=== PATIENT | male | born 1955 | race Caucasian/White ===

== ENCOUNTER 2023-01-09 21:26 | Inpatient (IN) | payer BC, MEDICARE ==
[2023-01-09] MEDS ORDERED: HEPARIN SODIUM 1,000 UN/ML (10ML VL) IV PRN (21:41)
[2023-01-09] MEDS ORDERED: HEPARIN SOD,PORK IN 0.45% NACL 25,000 UNIT in 0.45% NACL 1 250ML.BAG IV SCH (21:45)
[2023-01-09] MEDS ORDERED: NALOXONE 0.4 MG/ML 1 ML VIAL IV PRN (22:05)
--- NOTE | 2023-01-09 22:05 | ED ---
General Adult HPI - General Stated complaint: Chest Pain - History of Present Illness Initial comments: This is a 67-year-old male with a past medical history including diabetes, hypertension, atrial fibrillation and chronic diabetic foot wound on IV antibiotics via PICC line presents emergency department as a transfer patient for [facility]. The patient initially presented to the outside hospital for chest pain that began 1 hour prior to arrival. The patient described this chest pain as pressure-like sensation and he has never had pain like this before. The patient was found to have an NSTEMI as well as a hypertensive emergency and was started on IV heparin and nitroglycerin. Due to these findings in the patient having follow-up with cardiology here in [place], the patient was transferred for admission, high level of care and continuity of care. The patient on arrival stated that his chest pain was greatly improved and he was resting in bed comfortably currently on heparin and nitroglycerin drips. The patient denied any shortness of breath, lightheadedness or headaches. The patient was resting in bed comfortably. - Related Data Home Medications Medication Instructions Recorded Confirmed Aspirin EC [Ecotrin Low Dose] 81 mg PO DAILY 01/09/23 01/09/23 Enalapril [Vasotec] 20 mg PO BID 01/09/23 01/09/23 Furosemide [Lasix] 40 mg PO DAILY 01/09/23 01/09/23 Januvia(Unknown Dose) 1 tab PO DAILY 01/09/23 01/09/23 L.acidoph,Paracasei, B.lactis 1 cap PO DAILY 01/09/23 01/09/23 [Probiotic] Metoprolol Succinate (ER) [Toprol 100 mg PO DAILY 01/09/23 01/09/23 Xl] Trulicity(Unknown Dose) 1 dose SQ SA 01/09/23 01/09/23 Warfarin [Coumadin] 5 mg PO DAILY 01/09/23 01/09/23 metFORMIN HCL 1,000 mg PO BID 01/09/23 01/09/23 Allergies Allergy/AdvReac Type Severity Reaction Status Date / Time carrot Allergy "Roof of Verified 01/09/23 22:11 mouth itches" walnut Allergy "Roof of Verified 01/09/23 22:11 mouth itches" adhesive tape AdvReac Itching Verified 01/09/23 22:11 Review of Systems ROS Statement: Those systems with pertinent positive or pertinent negative responses have been documented in the HPI. ROS Other: All systems not noted in ROS Statement are negative. General Exam Limitations: no limitations General appearance: alert, in no apparent distress, obese Head exam: Present: atraumatic, normocephalic, normal inspection Eye exam: Present: normal appearance, PERRL Pupils: Present: normal accommodation ENT exam: Present: normal exam, normal oropharynx, mucous membranes moist Neck exam: Present: normal inspection, full ROM Respiratory exam: Present: normal lung sounds bilaterally Cardiovascular Exam: Present: regular rate, normal rhythm, normal heart sounds GI/Abdominal exam: Present: soft, normal bowel sounds Extremities exam: Present: normal inspection, full ROM Back exam: Present: normal inspection, full ROM Neurological exam: Present: alert, oriented X3, CN II-XII intact Psychiatric exam: Present: normal affect, normal mood Skin exam: Present: warm, dry EKG Findings - EKG Comments: EKG Findings:: An EKG was obtained and was interpreted by myself showing a rate of 84, QRS duration of 94 and QTC of 418. This EKG showed a atrial fibrillation consistent with his previous EKG and history. There was however no ST segment elevation or depression noted. Medical Decision Making - Medical Decision Making Was pt. sent in by a medical professional or institution (, PA, [employer], urgent care, hospital, or usp...) When possible be specific @ -Yes, transferred patient from [facility] for NSTEMI and HTN emergency Did you speak to anyone other than the patient for history (EMS, parent, family, police, friend...)? What history was obtained from this source @ -Yes, EMS for details during transport including that the patient's chest pain had improved and the rates@which the heparin and nitroglycerin were running. Did you review nursing and triage notes (agree or disagree)? Why? @ -I reviewed and agree with nursing and triage notes Were old charts reviewed (outside hosp., previous admission, EMS record, old EKG, old radiological studies, urgent care reports/EKG's, usp records)? Report findings @ -Yes, outside hospital chart@[facility] was reviewed including all initial workup, imaging and HPI. Differential Diagnosis (chest pain, altered mental status, abdominal pain women, abdominal pain men, vaginal bleeding, weakness, fever, dyspnea, syncope, headache, dizziness, GI bleed, back pain, seizure, CVA, palpatations, mental health)? @ -NSTEMI, HTN emergency, ACS EKG interpreted by me (3pts min.). @ -As above X-rays interpreted by me (1pt min.). @ -None done CT interpreted by me (1pt min.). @ -None done U/S interpreted by me (1pt. min.). @ -None done What testing was considered but not performed or refused? (CT, X-rays, U/S, labs)? Why? @ -All testing was done at [facility] including chest x-ray and CT of the chest therefore no further testing was done at this time. What meds were considered but not given or refused? Why? @ -None Did you discuss the management of the patient with other professionals (professionals i.e. , PA, [employer], lab, RT, psych nurse, social media editor, institution director, teacher, [employer] plans staff officer, case work aide)? Give summary @ -Yes, admitting physician was contacted regarding admission. Due to the pat ben's titratable nitroglycerin for hypertensive emergency, the ICU PA was also contacted for placement in the ICU. Was smoking cessation discussed for >3mins.? @ -No Was critical care preformed (if so, how long)? @ -Yes, see above Were there social determinants of health that impacted care today? How? (H omelessness, low income, unemployed, alcoholism, drug addiction, transportation, low edu. Level, literacy, decrease access to med. care, fci, rehab)? @ -No Was there de-escalation of care discussed even if they declined (Discuss DNR or withdrawal of care, Hospice)? DNR status @ -No What co-morbidities impacted this encounter? (DM, HTN, Smoking, COPD, CAD, Cancer, CVA, ARF, Chemo, Hep., AIDS, mental health diagnosis, sleep apnea, morbid obesity)? @ -HTN, DM, A fib Was patient admitted / discharged? Hospital course, mention meds given and route, prescriptions, significant lab abnormalities, going to OR and other pertinent info. @ -The patient was seen and evaluated emergency department. Physical exam, the patient was resting in bed without any acute distress and vital signs were stable and the patient was still hypotensive despite being on titratable IV nitroglycerin. All workup was performed at the outside facility however basic laboratory workup and repeat troponin was obtained here. The patient continued on IV heparin as well as IV nitroglycerin. Due to the patient's NSTMI and HTN emergency, while on titratable IV nitroglycerin, the patient will need to be admitted to the ICU. Both the admitting physician and manufacturing finance manager was contacted and accepted the patient for admission. The patient was admitted in stable condition. Undiagnosed new problem with uncertain prognosis? @ -No Drug Therapy requiring intensive monitoring for toxicity (Heparin, Nitro, Insulin, Cardizem)? @ -Nitro, Heparin Were any procedures done? @ -No Diagnosis/symptom? @ -NSTEMI, HTN emergency Acute, or Chronic, or Acute on Chronic? @ -Acute Uncomplicated (without systemic symptoms) or Complicated (systemic symptoms)? @ -Complicated Side effects of treatment? @ -No Exacerbation, Progression, or Severe Exacerbation? @ -No Poses a threat to life or bodily function? How? (Chest pain, [place], [place], pneumonia, PE, COPD, DKA, ARF, appy, cholecystitis, CVA, Diverticulitis, Homicidal, Suicidal, threat to staff... and all critical care pts) @ -Yes, continued hypertensive emergency and NSTEMI can lead to continued end organ damage and possible . Critical Care Time Critical Care Time: Yes Total Critical Care Time: 32 Disposition Clinical Impression: NSTEMI (non-ST elevated myocardial infarction), Hypertensive emergency Disposition: ADMITTED IP TO THIS [facility] Condition: Stable Is patient prescribed a controlled substance at d/c from ED?: No Referrals: Yvon Cano MD [Primary Care Provider] - 1-2 days Time of Disposition: 22:00 Decision to Admit Reason: Admit from EC Decision Date: 01/09/23 Decision Time: 22:00
[2023-01-09 22:25] LABS: Basophils % (A) 0 %; Eosinophils # (A) 0.6 k/uL (0-0.7); Eosinophils % (A) 6 %; HCT 36.9 % (39.0-53.0); HGB 12.1 gm/dL (13.0-17.5); Lymphocytes # (A) 0.8 k/uL (1.0-4.8); Lymphocytes % (A) 8 %; MCH 26.1 pg (25.0-35.0); MCHC 32.7 g/dL (31.0-37.0); MCV 79.8 fL (80.0-100.0); Mean Platelet Volume 8.4; Monocytes # (A) 0.5 k/uL (0-1.0); Monocytes % (A) 5 %; Neutrophils # (A) 7.6 k/uL (1.3-7.7); Neutrophils % (A) 79 %; Platelet Count 362 k/uL (150-450); RBC 4.63 m/uL (4.30-5.90); RDW 13.9 % (11.5-15.5); WBC 9.6 k/uL (3.8-10.6)
[2023-01-09] MEDS: NITROGLYCERIN-D5W PMX 50 MG in DEXTROSE/WATER 1 250ML.BAG IV ONE (22:30)
[2023-01-09 22:39] LABS: INR 1.1 (<1.2); Partial Thromboplastin Time 31.3 sec (22.0-30.0); Prothrombin Time 11.7 sec (9.0-12.0)
[2023-01-09 22:54] LABS: Albumin 3.3 g/dL (3.5-5.0); Calcium 8.6 mg/dL (8.4-10.2); Magnesium 1.7 mg/dL (1.6-2.3); Potassium 4.7 mmol/L (3.5-5.1); Total Bilirubin 0.8 mg/dL (0.2-1.3); Total Protein 6.9 g/dL (6.3-8.2)
[2023-01-09 23:05] LABS: Glucose,Whole Blood 115 mg/dL (70-110)
[2023-01-09] MEDS ORDERED: DEXTROSE 50% SYRINGE 50 ML IVP PRN ×2 (23:42)
[2023-01-10] MEDS ORDERED: Magnesium Replacement Protocol 1 EACH MISC MISCELLANE PRN (00:04)
[2023-01-10] MEDS: lisinopriL 20 MG TAB PO SCH ×3 (00:17→20:36)
--- NOTE | 2023-01-10 01:45 | P.CNPUL ---
History of Present Illness Consult date: 01/10/23 Requesting physician: Harry Cano Reason for consult: other (ICU management) Chief complaint: Chest pain History of present illness: I'm seeing this patient in new consultation today 01/10/2023 in regard to ICU management. Patient is a 67-year-old white male with reported past medical history of hypertension, heart failure, atrial fibrillation anticoagulated on Coumadin, diabetes mellitus, a chronic diabetic foot ulcer and osteomyelitis requiring daily antibiotic infusions through a left PICC, and remote history of smoking. Patient started experiencing chest pain approximately 1 hour before presenting to [facility] yesterday evening. Patient was diagnosed with a non-STEMI at the outside facility. Patient's troponin peaked at 0.46. Patient was also profoundly hypertensive on arrival, and he was started on a nitroglycerin infusion. While being worked up, the patient had a chest CTA which was negative for pulmonary embolism. It did show small bilateral pleural effusions and cardiomegaly. He was then transferred to [facility]. At our facility, the patient's troponin is now downtrending, and is currently 0.34. A repeat ECG shows atrial fibrillation with controlled ventricular rate of 80 bpm and no acute ischemic changes. Patient is currently resting in bed, on room air, in no acute distress. He does report some mild chest pain that radiates to the left shoulder. Denies chest palpitations, lightheadedness, syncope. Patient currently has low intensity heparin infusing per protocol. His blood pressure is still quite hypertensive, and there is a nitroglycerin infusion at 10 mics per minute, to be titrated for hypertension. Patient states that he took most of his cardiac medications besides his p.m. enalapril. A cardiology consult was placed. Patient's CBC on arrival showed a WBC count of 9.6, hemoglobin 12.1, hematocrit 36.9, platelets 362,000. INR was 1.1; patient states that he was taking his Coumadin on an outpatient basis. Most recent BMP shows a sodium 137, potassium 4.7, chloride 100, serum CO2 29, BUN 23, creatinine 1.19, glucose 141. Patient is currently being monitored in the intensive care unit. Review of Systems REVIEW OF SYSTEMS: CONSTITUTIONAL: Denies any recent significant weight loss or weight gain. EYES: Denies change in vision. EARS, NOSE, MOUTH, THROAT: Denies headaches, denies sore throat. CARDIOVASCULAR: See HPI. RESPIRATORY: Denies shortness of breath, cough, congestion or hemoptysis. GASTROINTESTINAL: Denies change in appetite, abdominal pain, nausea and vomiting, or diarrhea GENITOURINARY: Denies hematuria, denies infections. MUSKULOSKELETAL: Denies pain, denies swelling. INTEGUMENTARY: Denies rash, denies eczema. NEUROLOGICAL: Denies recent memory loss, no recent seizure activity. PSYCHIATRIC: Denies anxiety, denies depression. HEMATOLOGIC/LYMPHATIC: Denies anemia, denies enlarged lymph node Past Medical History Past Medical History: Atrial Fibrillation, Heart Failure, Diabetes Mellitus, Hy pertension Additional Past Medical History / Comment(s): left foot wound History of Any Multi-Drug Resistant Organisms: None Reported Past Surgical History: Back Surgery, Hernia Repair Additional Past Surgical History / Comment(s): second and third toe on right foot amputated, left foot surgery Past Anesthesia/Blood Transfusion Reactions: No Reported Reaction Past Psychological History: No Psychological Hx Reported Smoking Status: Former smoker Past Alcohol Use History: None Reported Past Drug Use History: None Reported - Past Family History Father Family Medical History: Diabetes Mellitus Additional Family Medical History / Comment(s): in car accident at age 60 Mother Family Medical History: Myocardial Infarction (NH) Additional Family Medical History / Comment(s): at age 84 of heart problems Medications and Allergies Home Medications Medication Instructions Recorded Confirmed Type Aspirin EC [Ecotrin Low Dose] 81 mg PO DAILY 01/09/23 01/09/23 History Enalapril [Vasotec] 20 mg PO BID 01/09/23 01/09/23 History Furosemide [Lasix] 40 mg PO DAILY 01/09/23 01/09/23 History Januvia(Unknown Dose) 1 tab PO DAILY 01/09/23 01/09/23 History L.acidoph,Paracasei, B.lactis 1 cap PO DAILY 01/09/23 01/09/23 History [Probiotic] Metoprolol Succinate (ER) [Toprol 100 mg PO DAILY 01/09/23 01/09/23 History Xl] Trulicity(Unknown Dose) 1 dose SQ SA 01/09/23 01/09/23 History Warfarin [Coumadin] 5 mg PO DAILY 01/09/23 01/09/23 History metFORMIN HCL 1,000 mg PO BID 01/09/23 01/09/23 History Allergies Allergy/AdvReac Type Severity Reaction Status Date / Time carrot Allergy "Roof of Verified 01/09/23 22:11 mouth itches" walnut Allergy "Roof of Verified 01/09/23 22:11 mouth itches" adhesive tape AdvReac Itching Verified 01/09/23 22:11 Physical Exam Vitals: Vital Signs Temp Pulse Resp BP Pulse Ox 01/09/23 23:11 78 20 177/80 96 01/09/23 23:00 98.1 F 89 16 172/102 93 L Intake and Output 01/09/23 01/09/23 01/10/23 14:59 22:59 06:59 Intake Total 2.35 Output Total 0 Balance 2.35 Intake: Intake, IV Titration 2.35 Amount Nitroglycerin-D5w Pmx 50 2.35 mg In Dextrose/Water 1 250ml.bag @ 10 MCG/MIN 3 mls/hr IV .Q24H ONE Rx#: [id number] Output: Urine 0 Other: Weight 139 kg GENERAL EXAM: Alert, 67-year-old white morbidly obese male , comfortable in no apparent distress. HEAD: Normocephalic and atraumatic EYES: Normal reaction of pupils, equal size. NOSE: Clear with pink turbinates. THROAT: No erythema or exudates. NECK: No masses, no JVD. CHEST: No chest wall deformity. LUNGS: Equal air entry with no crackles, wheeze, rhonchi or dullness. No conversational dyspnea or accessory muscle use.. CVS: S1 and S2 normal with no audible murmur, irregular rhythm with a rate of 80 bpm. No extra heart sounds ABDOMEN: Obese abdomen. No hepatosplenomegaly, active bowel sounds, no guarding or rigidity. SPINE: No scoliosis or deformity SKIN: Bilateral lower extremity erythema, left foot dressing clean dry and intact CENTRAL NERVOUS SYSTEM: No focal deficits, tone is normal in all 4 extremities. EXTREMITIES: There is bilateral lower extremity pitting edema. Peripheral pulses are intact. Results - Laboratory Findings CBC and BMP: 01/09/23 22:07 01/09/23 22:07 PT/INR, D-dimer PT 11.7 sec (9.0-12.0) 01/09/23 22:07 INR 1.1 (<1.2) 01/09/23 22:07 Abnormal lab findings: Abnormal Labs 01/09/23 01/09/23 01/09/23 22:07 22:07 22:07 Hgb 12.1 L Hct 36.9 L MCV 79.8 L Lymphocytes # 0.8 L APTT BUN 23 H Glucose 141 H POC Glucose (mg/dL) Alkaline Phosphatase 137 H Troponin I 0.344 H* Albumin 3.3 L 01/09/23 01/09/23 22:07 23:03 Hgb Hct MCV Lymphocytes # APTT 31.3 H BUN Glucose POC Glucose (mg/dL) 115 H Alkaline Phosphatase Troponin I Albumin - Diagnostic Findings Chest x-ray: report reviewed CT scan - chest: report reviewed Assessment and Plan Assessment: NSTEMI, transferred from outside facility. Troponins are currently trending down, with the most recent troponin of 0.34. Hypertensive emergency Atrial fibrillation with controlled ventricular rate, reportedly anticoagulated on Coumadin on an outpatient basis. Morbid obesity with a BMI of 41.6 Diabetes mellitus type 2 Chronic diabetic ulcer of the left foot with osteomyelitis and treatments at the wound care clinic. History of prior amputations of select metatarsals of the right foot Plan: Patient's medication, labs, imaging from outside facility were reviewed Continue nitroglycerin infusion for hypertension Continue heparin infusion per protocol EKG was reviewed Cardiology consult appreciated Consult infectious disease Recheck labs in the morning Novolog insulin ACHS Protonix for GI prophylaxis We will continue to follow I have personally seen and examined the patient, performed the documentation and the assessment and plan as written. Number of minutes spent on the visit:20 Time with Patient: Greater than 30
[2023-01-10] MEDS ORDERED: MAGNESIUM SULFATE-D5W PMX 1 GM in DEXTROSE/WATER 1 100ML.BAG IVPB ONE (03:07)
[2023-01-10 04:42] LABS: Basophils % (A) 0 %; Eosinophils # (A) 0.5 k/uL (0-0.7); Eosinophils % (A) 6 %; HCT 38.2 % (39.0-53.0); Hypochromasia Slight; Lymphocytes # (A) 0.6 k/uL (1.0-4.8); Lymphocytes % (A) 7 %; MCH 25.3 pg (25.0-35.0); MCHC 31.4 g/dL (31.0-37.0); MCV 80.8 fL (80.0-100.0); Mean Platelet Volume 8.2; Monocytes # (A) 0.6 k/uL (0-1.0); Monocytes % (A) 7 %; Neutrophils # (A) 6.6 k/uL (1.3-7.7); Neutrophils % (A) 79 %; Platelet Count 359 k/uL (150-450); RBC 4.73 m/uL (4.30-5.90); RDW 13.9 % (11.5-15.5); WBC 8.4 k/uL (3.8-10.6)
[2023-01-10 05:11] LABS: INR 1.2 (<1.2); Partial Thromboplastin Time 26.3 sec (22.0-30.0)
[2023-01-10 05:25] LABS: African American GFR (CKD) 70 (>60 ml/min/1.73 sqM); Anion Gap 6 mmol/L; Blood Urea Nitrogen 20 mg/dL (9-20); Calcium 8.8 mg/dL (8.4-10.2); Carbon Dioxide 28 mmol/L (22-30); Chloride 102 mmol/L (98-107); Glucose 133 mg/dL (74-99); Non-African American GFR(CKD) 60 (>60 ml/min/1.73 sqM); Potassium 4.7 mmol/L (3.5-5.1); Sodium 136 mmol/L (137-145)
[2023-01-10 07:07] LABS: Glucose,Whole Blood 163 mg/dL (70-110)
[2023-01-10] MEDS: INSULIN ASPART (NovoLOG) 100 UNIT/ML VIAL SQ SCH ×4 (07:13→20:36)
--- NOTE | 2023-01-10 07:23 | P.CRDCN ---
History of Present Illness Consult date: 01/10/23 History of present illness: History of Present Illness: The patient is a 67-year-old male with a known history of hypertension, atrial fibrillation, diabetes mellitus, followed by Dr. Pacheco who presented to [facility] with chest discomfort and was noted to be hypertensive. His troponin was mildly elevated and he was transferred for further evaluation. The patient has a known history of chronic A. fib fibrillation, anticoagulated with Coumadin but no history of ischemic heart disease. He has a history of CHF according to him. He presented to the emergency room with the chest discomfort, radiating to the left shoulder but had some respirophasic pattern. A CT angiogram showed no evidence of pulmonary embolism but he had evidence of calcifications of the coronary arteries. He continues to have mild discomfort. He denies any dyspnea, dizziness or palpitations. The discomfort occurred at rest. He has no history of PND or orthopnea. He has a history of diabetic with ulcer. He has a remote history of smoking that he stopped over 20 years ago. No recent cardiac workup is available to me. He is complaining of headache from the IV nitroglycerin Medications: Coumadin, Toprol-XL 100 mg daily, Lasix 40 mg daily, enalapril 20 mg twice a day, aspirin once a day, metformin 1000 mg twice a day, Trulicity Review of Systems: Respiratory: He has dyspnea on exertion but no recent wheezing, cough GI: No nausea or vomiting . No history of peptic ulcer disease. No recent GI bleed. : No hematuria or dysuria. Nervous System: No stroke or seizure. Physical Examination: 67-year-old male, alert and oriented no apparent distress, obese ,Blood pressure 168/96, Heart rate 88. On presentation his systolic pressure was 193 Head: Normocephalic. Eyes: Sclerae nonicteric. Neck: Good carotid upstroke, no bruit, no jugular venous distention. Lungs: Clear to auscultation. Heart: Irregular rate and rhythm, S1-S2, no S3, no rub. Systolic ejection murm ur, 2/6. Abdomen: Soft nontender, positive bowel sounds no organomegaly. Extremities: +1 edema, decrease distal pulses. Erythema noted Labs: Hemoglobin 12, INR 1.2. BUN 20, creatinine 1.23, potassium 4.7. Troponin 0.344. EKG: Pending Impression: 1. Chest discomfort with mild troponin elevation. Rule out non-STEMI. Some of his symptoms appears to be respirophasic 2. Hypertension, uncontrolled 3. History of diabetes with diabetic foot ulcer 4. Obesity 5. Atrial fibrillation, persistent Plan: 1. Obtain an echocardiogram with Doppler 2. And add amlodipine and continue statin 3. I discussed with him the findings and have recommended with coronary angiography to assess her status and guide his treatment 4. Depending on his progress further recommendations will be made 5. Thank you for this consult we will follow with Past Medical History Past Medical History: Atrial Fibrillation, Heart Failure, Diabetes Mellitus, Hypertension Additional Past Medical History / Comment(s): left foot wound History of Any Multi-Drug Resistant Organisms: None Reported Past Surgical History: Back Surgery, Hernia Repair Additional Past Surgical History / Comment(s): second and third toe on right foot amputated, left foot surgery Past Anesthesia/Blood Transfusion Reactions: No Reported Reaction Past Psychological History: No Psychological Hx Reported Smoking Status: Former smoker Past Alcohol Use History: None Reported Past Drug Use History: None Reported - Past Family History Father Family Medical History: Diabetes Mellitus Additional Family Medical History / Comment(s): in car accident at age 60 Mother Family Medical History: Myocardial Infarction ([place]) Additional Family Medical History / Comment(s): at age 84 of heart problems Medications and Allergies Home Medications Medication Instructions Recorded Confirmed Type Aspirin EC [Ecotrin Low Dose] 81 mg PO DAILY 01/09/23 01/09/23 History Enalapril [Vasotec] 20 mg PO BID 01/09/23 01/09/23 History Furosemide [Lasix] 40 mg PO DAILY 01/09/23 01/09/23 History Januvia(Unknown Dose) 1 tab PO DAILY 01/09/23 01/09/23 History L.acidoph,Paracasei, B.lactis 1 cap PO DAILY 01/09/23 01/09/23 History [Probiotic] Metoprolol Succinate (ER) [Toprol 100 mg PO DAILY 01/09/23 01/09/23 History Xl] Trulicity(Unknown Dose) 1 dose SQ SA 01/09/23 01/09/23 History Warfarin [Coumadin] 5 mg PO DAILY 01/09/23 01/09/23 History metFORMIN HCL 1,000 mg PO BID 01/09/23 01/09/23 History Allergies Allergy/AdvReac Type Severity Reaction Status Date / Time carrot Allergy "Roof of Verified 01/09/23 22:11 mouth itches" walnut Allergy "Roof of Verified 01/09/23 22:11 mouth itches" adhesive tape AdvReac Itching Verified 01/09/23 22:11 Physical Exam Vitals: Vital Signs Temp Pulse Resp BP Pulse Ox 01/10/23 07:00 88 10 L 168/96 94 L 01/10/23 06:30 94 30 H 173/96 92 L 01/10/23 06:00 85 27 H 160/106 92 L 01/10/23 05:30 86 25 H 168/98 92 L 01/10/23 05:00 91 12 177/126 92 L 01/10/23 04:30 87 22 189/97 95 01/10/23 04:00 98.6 F 94 24 178/119 919 H 01/10/23 03:30 97 9 L 193/113 94 L 01/10/23 03:00 92 13 177/112 93 L 01/10/23 02:30 83 10 L 174/100 92 L 01/10/23 02:00 76 20 193/109 91 L 01/10/23 01:31 91 19 183/99 94 L 01/09/23 23:11 78 20 177/80 96 01/09/23 23:00 98.1 F 89 16 172/102 93 L Intake and Output 01/09/23 01/10/23 01/10/23 22:59 06:59 14:59 Intake Total 297.997 Output Total 1250 0 Balance -952.003 0 Intake: IV 100 Magnesium Sulfate-D5w Pmx 100 1 gm In Dextrose/Water 1 100ml.bag @ 100 mls/hr IVPB ONCE ONE Rx#: [id number] Intake, IV Titration 97.997 Amount Heparin Sod,Pork in 0.45% 69.472 NaCl 25,000 unit In 0.45 % NaCl 1 250ml.bag @ 7.47 UNITS/KG/HR 9.996 mls/hr IV .Q24H [facility] Rx#: [id number] Nitroglycerin-D5w Pmx 50 28.525 mg In Dextrose/Water 1 250ml.bag @ 10 MCG/MIN 3 mls/hr IV .Q24H ONE Rx#: [id number] Oral 100 Output: Urine 1250 0 Other: Voiding Method Urinal # Voids 1 Weight 139 kg 131.9 kg Results 01/10/23 04:04 01/10/23 04:04 Cardiac Enzymes 01/09/23 01/09/23 Range/Units 22:07 22:07 AST 25 (17-59) U/L Troponin I 0.344 H* (0.000-0.034) ng/mL Coagulation 01/09/23 01/10/23 Range/Units 22:07 04:04 PT 11.7 12.0 (9.0-12.0) sec APTT 31.3 H 26.3 (22.0-30.0) sec CBC 01/09/23 01/10/23 Range/Units 22:07 04:04 WBC 9.6 8.4 (3.8-10.6) k/uL RBC 4.63 4.73 (4.30-5.90) m/uL Hgb 12.1 L 12.0 L (13.0-17.5) gm/dL Hct 36.9 L 38.2 L (39.0-53.0) % Plt Count 362 359 (150-450) k/uL Comprehensive Metabolic Panel 01/09/23 01/10/23 Range/Units 22:07 04:04 Sodium 137 136 L (137-145) mmol/L Potassium 4.7 4.7 (3.5-5.1) mmol/L Chloride 100 102 (98-107) mmol/L Carbon Dioxide 29 28 (22-30) mmol/L BUN 23 H 20 (9-20) mg/dL Creatinine 1.19 1.23 (0.66-1.25) mg/dL Glucose 141 H 133 H (74-99) mg/dL Calcium 8.6 8.8 (8.4-10.2) mg/dL AST 25 (17-59) U/L ALT 11 (4-49) U/L Alkaline Phosphatase 137 H (38-126) U/L Total Protein 6.9 (6.3-8.2) g/dL Albumin 3.3 L (3.5-5.0) g/dL Current Medications Generic Name Dose Route Start Last Admin Trade Name Freq PRN Reason Stop Dose Admin Atorvastatin Calcium 40 mg 01/10/23 09:00 Atorvastatin 40 Mg Tab PO DAILY [facility] Dextrose/Water 25 ml 01/09/23 23:42 Dextrose 50% Syringe 50 Ml IVP PER PROTOCOL PRN Hypoglycemia Protocol Dextrose/Water 50 ml 01/09/23 23:42 Dextrose 50% Syringe 50 Ml IVP PER PROTOCOL PRN Hypoglycemia Protocol Heparin Sodium (Porcine) 0 unit 01/09/23 21:41 01/10/23 05:29 Heparin Sodium 1,000 Un/Ml (10ml Vl) IV 4,000 unit PER PROTOCOL PRN Administration Low PTT Protocol Heparin Sodium/Sodium Chloride 250 mls @ 9.996 mls/hr 01/09/23 21:45 01/10/23 05:24 25,000 unit/ Sodium Chloride IV 10.47 units/kg/hr .Q24H [facility] 14.01 mls/hr Titration Protocol 7.47 UNITS/KG/HR Nitroglycerin/Dextrose 50 mg/ 250 mls @ 3 mls/hr 01/09/23 21:42 01/10/23 03:03 IV Solution IV 01/10/23 21:41 35 mcg/min .Q24H ONE 10.5 mls/hr Titration Protocol 10 MCG/MIN Insulin Aspart 0 unit 01/10/23 07:30 01/10/23 07:13 Insulin Aspart (Novolog) 100 Unit/Ml Vial SQ 2 unit ACHS [facility] Administration Protocol Lisinopril 20 mg 01/09/23 23:45 01/10/23 00:17 Lisinopril 20 Mg Tab PO 20 mg BID [facility] Administration Metoprolol Succinate 100 mg 01/10/23 09:00 Metoprolol Succinate (Er) 100 Mg Tab.Er.24h PO DAILY [facility] Miscellaneous Information 1 each 01/10/23 00:04 Magnesium Replacement Protocol 1 Each Misc MISCELLANE DAILY PRN Per Protocol Protocol Naloxone HCl 0.2 mg 01/09/23 22:05 Naloxone 0.4 Mg/Ml 1 Ml Vial IV Q2M PRN Opioid Reversal Pantoprazole Sodium 40 mg 01/10/23 07:30 Pantoprazole 40 Mg Tablet PO AC-BRKFST [facility] Intake and Output 01/09/23 01/10/23 01/10/23 22:59 06:59 14:59 Intake Total 297.997 Output Total 1250 0 Balance -952.003 0 Intake: IV 100 Magnesium Sulfate-D5w Pmx 100 1 gm In Dextrose/Water 1 100ml.bag @ 100 mls/hr IVPB ONCE ONE Rx#: [id number] Intake, IV Titration 97.997 Amount Heparin Sod,Pork in 0.45% 69.472 NaCl 25,000 unit In 0.45 % NaCl 1 250ml.bag @ 7.47 UNITS/KG/HR 9.996 mls/hr IV .Q24H [facility] Rx#: [id number] Nitroglycerin-D5w Pmx 50 28.525 mg In Dextrose/Water 1 250ml.bag @ 10 MCG/MIN 3 mls/hr IV .Q24H ONE Rx#: [id number] Oral 100 Output: Urine 1250 0 Other: Voiding Method Urinal # Voids 1 Weight 139 kg 131.9 kg 01/10/23 04:04 01/10/23 04:04
[2023-01-10] MEDS ORDERED: ALPRAZolam 0.5 MG TAB PO PRN (07:24)
[2023-01-10] MEDS ORDERED: ATORVASTATIN 80 MG TAB PO STA (07:24)
[2023-01-10] MEDS ORDERED: ASPIRIN 325 MG TAB PO STA (07:24)
[2023-01-10] MEDS ORDERED: ALPRAZolam 0.25 MG TAB PO PRN (07:24)
[2023-01-10] MEDS ORDERED: NITROGLYCERIN SL TABS 0.4 MG TAB SUBLINGUAL PRN ×2 (07:24→11:26)
[2023-01-10] MEDS: PANTOPRAZOLE 40 MG TABLET PO SCH (08:24)
[2023-01-10] MEDS: METOPROLOL SUCCINATE (ER) 100 MG TAB.ER.24H PO SCH (08:24)
--- NOTE | 2023-01-10 08:30 | XR ---
EXAMINATION TYPE: XR chest 1V portable DATE OF EXAM: 01/10/2023 COMPARISON: NONE HISTORY: Chest pain TECHNIQUE: Single frontal view of the chest is obtained. FINDINGS: There is a left PICC with catheter tip terminating at the cavoatrial junction. There is spinal fusion hardware within the thoracic spine. The heart size is normal. The cardiothymic sinus silhouette is within normal limits. There is pulmona ry vascular congestion. There are increased interstitial opacities bilaterally, which are slightly mo re confluent at the bilateral lung bases. There is no significant pleural effusion. There is no IMPRESSION: Diffuse bilateral interstitial opacities which are slightly more confluent at the bilateral lung base s. This finding could relate to pulmonary edema; however, an infectious etiology would be difficult t o exclude radiographically.
[2023-01-10] MEDS ORDERED: amLODIPine 5 MG TAB PO SCH (09:00)
[2023-01-10 09:08] LABS: Chol/HDL Ratio 4.69 Ratio; LDL Cholesterol,Calculated 91.1 mg/dL (0.0-131.0)
[2023-01-10] MEDS ORDERED: VERAPAMIL 2.5 MG/ML 2 ML AMP ONE (09:53)
[2023-01-10] MEDS ORDERED: HEPARIN SODIUM 1,000 UN/ML (10ML VL) ONE (10:11)
[2023-01-10] MEDS ORDERED: fentaNYL (PF) 50 MCG/ML 2 ML AMP ONE (10:11)
[2023-01-10] MEDS ORDERED: LIDOCAINE 1% INJ 10MG/ML (5 ML VIAL-PF) SQ ONE (10:13)
[2023-01-10] MEDS ORDERED: MIDAZOLAM 2 MG/2 ML VIAL IV ONE (10:15)
[2023-01-10] MEDS ORDERED: fentaNYL (PF) 50 MCG/ML 2 ML AMP IV ONE (10:15)
[2023-01-10] MEDS ORDERED: VERAPAMIL SYRINGE (5 MG/10 ML) INTRAARTER ONE (10:15)
[2023-01-10] MEDS ORDERED: ENALAPRILAT 1.25 MG/ML 1 ML VIAL ONE (10:17)
[2023-01-10] MEDS ORDERED: hydrALAZINE HCL 20 MG/ML 1 ML VIAL ONE (10:17)
[2023-01-10] MEDS: HEPARIN SODIUM 1,000 UN/ML (10ML VL) IV ONE ×3 (10:21→11:17)
[2023-01-10] MEDS ORDERED: SODIUM CHLORIDE 0.9% 500 ML 500 ML IV ONE (10:22)
[2023-01-10] MEDS ORDERED: CLOPIDOGREL 75 MG TAB ONE (10:42)
[2023-01-10] MEDS ORDERED: CLOPIDOGREL 75 MG TAB PO ONE (10:46)
[2023-01-10] MEDS: IOPAMIDOL-370 125ML BTL INJ ONE ×2 (10:47→11:03)
--- NOTE | 2023-01-10 10:53 | CC ---
CARDIAC CATHETERIZATION REPORT INDICATION: Acute [id number] elevation ID. PROCEDURE NOTE: After obtaining informed consent, left heart catheterization and coronary angiogram were performed via the right radial artery using standard Emigdio catheters. The patient tolerated the procedure well without any obvious immediate complications. The patient received moderate conscious sedation. Total sedation time was 20 minutes. Right radial artery access was obtained using modified Seldinger technique. A 6-Upper Sorbian sheath was placed. Catheters and wires were floated into the ascending aorta under fluoroscopic guidance. The patient received verapamil and heparin per protocol. FINDINGS: 1. HEMODYNAMICS: Left ventricular end-diastolic pressure is 13 mm. There is no significant gradient across the aortic valve. 2. LEFT VENTRICULOGRAM: Left ventriculogram is not performed. 3. ANGIOGRAPHIC DATA: a.Right coronary artery: Right coronary artery is a large dominant vessel that shows a 70% focal stenosis involving the PDA. b.Circumflex coronary artery is a codominant system, shows [id number] atherosclerotic plaque without any focal stenotic lesions. c.LAD shows an area of stenosis in the proximal portion, which in some views seems to be almost 70%. CONCLUSIONS: Significant stenosis involving the PDA, [id number] disease involving the LAD. PLAN: I am going to request Dr. Balderas, the on-call sales support advisor, to perform angioplasty with stent placement of the PDA and consider an iFR of the LAD. MMODL / IJN: [id number] /
[2023-01-10] MEDS ORDERED: NITROGLYCERIN 1000MCG/10ML SYRINGE INTRACORON ONE (10:56)
[2023-01-10] MEDS ORDERED: IOPAMIDOL-370 100ML BTL INJ ONE (11:14)
[2023-01-10] MEDS ORDERED: RX INFO: IV CONTRAST WAS GIVEN 1 EACH MISC MISCELLANE PRN (11:26)
[2023-01-10] MEDS ORDERED: ATROPINE SULFATE 0.1 MG/ML 10ML SYRINGE IV PRN (11:26)
[2023-01-10] MEDS ORDERED: ZOLPIDEM 5 MG TAB PO PRN (11:26)
[2023-01-10] MEDS ORDERED: MAG HYDROX/AL HYDROX/SIMETH 30 ML CUP PO PRN (11:26)
[2023-01-10] MEDS ORDERED: SODIUM CHLORIDE 0.9% 1,000 ML in EMPTY BAG 1 BAG IV SCH (11:30)
[2023-01-10 11:33] LABS: Glucose,Whole Blood 136 mg/dL (70-110)
--- NOTE | 2023-01-10 11:33 | P.PCN ---
Date of Procedure: 01/10/23 Description of Procedure: PERCUTANEOUS TRANSLUMINAL CORONARY ANGIOPLASTY CLINICAL INFORMATION: The patient is a 67-year-old male a known history of atrial fibrillation, hypertension and hyperlipidemia who presented with symptoms of chest discomfort, uncontrolled blood pressure and troponin elevation. He u nderwent cardiac catheterization by Dr. Pacheco and was found to have significant disease in the right PDA. Recommendations were made regarding angioplasty and stenting. The procedure as well as the risks and the complications were discussed with the patient who was in full understanding and agreement. PROCEDURE: A 6 Irish 0.75 AL guiding catheter was introduced into the system. After cannulating the right coronary ostium, a 0.014 BMW J was advanced across the lesion and positioned distally. Following that a 2.5 x 23 mm Xience Lev point stent was deployed. It was dilated at 16 [place]. Following that and after removing the balloon a 2.5 x 12 mm NC Treck balloon was advanced into inflation at 12 [place] were done . After the last inflation, after appropriate wait, the balloon and the guidewire were withdrawn back into the guiding catheter. Images were obtained and repeated. Those images reveal stable successful stenting. At that point, the guiding catheter, the balloon, and guidewire were removed. The sheath was removed. Hemostasis was obtained with deployment of a vascular component. There were no immediate complications. The patient was returned to the room in stable condition. Of note, the patient received 9500 units of heparin as well as Plavix. His ACT was followed. There was no immediate complications. He had mild chest discomfort prior to the start of the procedure that did not change during the procedure. RESULTS: Successful stenting of the right PDA with reduction of stenosis from 70% to less than 5 %. RECOMMENDATIONS: The patient will continue on Plavix for 1 year, aspirin will be stopped in one week and he will continue on anticoagulation in addition to aggressive coronary risks modifications. The findings and recommendations were discussed with the patient and the family, they are in full understanding and agreement. Duration of sedation: 25 minutes
[2023-01-10] MEDS: hydroCHLOROthiazide 25 MG TAB PO SCH (12:12)
[2023-01-10] MEDS ORDERED: amLODIPine 5 MG TAB PO STA (15:18)
[2023-01-10 16:15] LABS: Glucose,Whole Blood 158 mg/dL (70-110)
[2023-01-10] MEDS ORDERED: NITROGLYCERIN-D5W PMX 250 ML IV ONE (16:44)
[2023-01-10] MEDS: AMPICILLIN-SULBACTAM 3 GM in SODIUM CHLORIDE 0.9% 100 ML IVPB SCH ×2 (16:54→23:53)
[2023-01-10] MEDS: NITROGLYCERIN-D5W PMX 50 MG in DEXTROSE/WATER 1 250ML.BAG IV ONE (16:55)
--- NOTE | 2023-01-10 18:03 | CA ---
Transthoracic Echo Report Name: Juan Francisco Bejarano Age: 67 Gender: M : 1955 Exam Date: 01/10/2023 12:21 Exam Location: [place] [facility] Ht (in): 72 Wt (lb): 290 Ordering Physician: Katie Balderas MD ([id number]) Attending/Referring Phys: Plug Cutter Carleen Louis RDCS Procedure CPT: Indications: HTN Cardiac Hx: Technical Quality: Fair Contrast 1: Total Dose (mL): Contrast 2: Total Dose (mL): MEASUREMENTS (Male / Female) Normal Values 2D ECHO LV Diastolic Diameter PLAX 4.4 cm 4.2 - 5.9 / 3.9 - 5.3 cm LV Systolic Diameter PLAX 3.3 cm IVS Diastolic Thickness 1.6 cm 0.6 - 1.0 / 0.6 - 0.9 cm LVPW Diastolic Thickness 1.1 cm 0.6 - 1.0 / 0.6 - 0.9 cm LV Relative Wall Thickness 0.6 RV Internal Dim ED PLAX 3.3 cm LVOT Diameter 2.3 cm LA Volume 120.3 cm??? 18 - 58 / 22 - 52 cm??? M-MODE Aortic Root Diameter MM 3.9 cm LA Systolic Diameter MM 4.9 cm LA Ao Ratio MM 1.2 AV Cusp Separation MM 1.3 cm DOPPLER AV Peak Velocity 247.0 cm/s AV Peak Gradient 24.4 mmHg AV Mean Velocity 180.5 cm/s AV Mean Gradient 14.3 mmHg AV Velocity Time Integral 50.2 cm LVOT Peak Velocity 103.4 cm/s LVOT Peak Gradient 4.3 mmHg LVOT Velocity Time Integral 24.7 cm LVOT Stroke Volume 99.3 cm??? LVOT Stroke Volume Index 39.8 ml/m??? LVOT Cardiac Index 3125.5 cm???/min???m??? AV Area Cont Eq vti 2.0 cm??? AV Area Cont Eq pk 1.7 cm??? MV E' Velocity 6.6 cm/s TR Peak Velocity 330.5 cm/s TR Peak Gradient 43.7 mmHg Right Atrial Pressure 20.0 mmHg Pulmonary Artery Systolic Pressu 63.7 mmHg Right Ventricular Systolic Press 63.7 mmHg FINDINGS Left Ventricle Moderately increased left ventricular wall thickness. Left ventricular cavity size normal. Normal left ventricular systolic function with no obvious regional wall motion abnormalities. Left ventricular ejection fraction is estimated at 50-55 %. Right Ventricle Normal right ventricular size and function. Severe pulmonary hypertension. Right ventricular systolic pressure estimated at 69 mm hg. Right Atrium Normal right atrial size. Left Atrium Severely increased left atrial volume. Moderately increased left atrial area. Mitral Valve Structurally normal mitral valve. Mitral valve thickened. Mild mitral annular calcification. Mild mitral regurgitation. Aortic Valve Mild aortic stenosis with a peak gradient of 24 mmHg and a mean gradient of 14 mmHg. Tricuspid Valve Structurally normal tricuspid valve. Moderate tricuspid regurgitation. Pulmonic Valve Trace pulmonic regurgitation. No pulmonic regurgitation. Pericardium No pericardial effusion. Aorta Normal size aortic root and proximal ascending aorta. CONCLUSIONS Normal LV systolic function Severe pulmonary hypertension Left atrial enlargement Mild aortic stenosis Previewed by: Dr. Jordan Pacheco MD (Electronically Signed) Final Date: 10 January 2023 18:02
[2023-01-10] MEDS: LACTOBACILLUS ACIDOPH & BULGAR 1 EACH PACKET PO SCH (18:43)
--- NOTE | 2023-01-10 19:22 | P.CONS ---
History of Present Illness - Reason for Consult Consult date: 01/10/23 - History of Present Illness Patient is a 67-year male with a past medical history significant for diabetes mellitus hypertension atrial fibrillation patient did have a left fourth toe hospital mellitus diabetic foot infection apparently the patient did have a bone biopsy and culture done by his cribbing setter and the patient has been on IV cefazolin in the outpatient setting patient presented to the outside facility with a chest pain describing it to be sharp and pressure-like sensation without any radiation patient has been diagnosed with NSTEMI and the patient is subsequently transferred to [facility] for further evaluation on presentation to the hospital the patient was afebrile and no fever has been recorded subsequently patient did have a normal white count kidney function has been normal patient did have a chest x-ray diffuse bilateral interstitial opacities patient was evaluated by cardiology and the patient did have a cardiac cath and successful stenting of the right PDA patient has been admitted to ICU infectious he was consulted regarding his right diabetic foot infection with osteomyelitis and need for antibiotic therapy I was able to get the culture report from outside facility which is growing Peptostreptococcus and Staph aureus that was oxacillin sensitive, patient currently denies having any pain to his left fourth toe area which remained to be swollen and did have some drainage but no significant foul-smelling and denies any fever Past Medical History Past Medical History: Atrial Fibrillation, Heart Failure, Diabetes Mellitus, Hypertension Additional Past Medical History / Comment(s): left foot wound History of Any Multi-Drug Resistant Organisms: None Reported Past Surgical History: Back Surgery, Hernia Repair Additional Past Surgical History / Comment(s): second and third toe on right foot amputated, left foot surgery Past Anesthesia/Blood Transfusion Reactions: No Reported Reaction Past Psychological History: No Psychological Hx Reported Smoking Status: Former smoker Past Alcohol Use History: None Reported Past Drug Use History: None Reported - Past Family History Father Family Medical History: Diabetes Mellitus Additional Family Medical History / Comment(s): in car accident at age 60 Mother Family Medical History: Myocardial Infarction ([place]) Additional Family Medical History / Comment(s): at age 84 of heart problems Medications and Allergies Home Medications Medication Instructions Recorded Confirmed Type Aspirin EC [Ecotrin Low Dose] 81 mg PO DAILY 01/09/23 01/09/23 History Enalapril [Vasotec] 20 mg PO BID 01/09/23 01/09/23 History Furosemide [Lasix] 40 mg PO DAILY 01/09/23 01/09/23 History L.acidoph,Paracasei, B.lactis 1 cap PO DAILY 01/09/23 01/09/23 History [Probiotic] Metoprolol Succinate (ER) [Toprol 100 mg PO DAILY 01/09/23 01/09/23 History Xl] Warfarin [Coumadin] 5 mg PO DAILY 01/09/23 01/09/23 History metFORMIN HCL 1,000 mg PO BID 01/09/23 01/09/23 History Dulaglutide [Trulicity] 1.5 mg SQ SA 01/10/23 01/10/23 History sitaGLIPtin [Januvia] 100 mg PO DIRECTED 01/10/23 01/10/23 History Allergies Allergy/AdvReac Type Severity Reaction Status Date / Time carrot Allergy "Roof of Verified 01/09/23 22:11 mouth itches" walnut Allergy "Roof of Verified 01/09/23 22:11 mouth itches" adhesive tape AdvReac Itching Verified 01/09/23 22:11 Physical Exam Vitals: Vital Signs Temp Pulse Resp BP Pulse Ox 01/10/23 11:30 97.5 F L 76 12 160/98 94 L 01/10/23 10:00 180/104 01/10/23 09:30 78 20 191/132 96 01/10/23 09:00 84 16 178/104 96 01/10/23 08:30 90 26 H 185/139 92 L 01/10/23 08:00 97.7 F 128 H 24 183/116 93 L 01/10/23 07:30 88 16 163/116 94 L 01/10/23 07:00 88 10 L 168/96 94 L 01/10/23 06:30 94 30 H 173/96 92 L 01/10/23 06:00 85 27 H 160/106 92 L 01/10/23 05:30 86 25 H 168/98 92 L 01/10/23 05:00 91 12 177/126 92 L 01/10/23 04:30 87 22 189/97 95 01/10/23 04:00 98.6 F 94 24 178/119 919 H 01/10/23 03:30 97 9 L 193/113 94 L 01/10/23 03:00 92 13 177/112 93 L 04/17/23 02:30 83 10 L 174/100 92 L 01/10/23 02:00 76 20 193/109 91 L 01/10/23 01:31 91 19 183/99 94 L 01/09/23 23:11 78 20 177/80 96 01/09/23 23:00 98.1 F 89 16 172/102 93 L Intake and Output 01/09/23 01/10/23 01/10/23 22:59 06:59 14:59 Intake Total 321.472 482.631 Output Total 1250 300 Balance -928.528 182.631 Intake: IV 100 200 Magnesium Sulfate-D5w Pmx 100 1 gm In Dextrose/Water 1 100ml.bag @ 100 mls/hr IVPB ONCE ONE Rx#: [id number] Intake, IV Titration 121.472 282.631 Amount Heparin Sod,Pork in 0.45% 69.472 43.431 NaCl 25,000 unit In 0.45 % NaCl 1 250ml.bag @ 7.47 UNITS/KG/HR 9.996 mls/hr IV .Q24H [facility] Rx#: [id number] Nitroglycerin-D5w Pmx 50 52.000 107.3 mg In Dextrose/Water 1 250ml.bag @ 10 MCG/MIN 3 mls/hr IV .Q24H [facility] Rx#: [id number] Sodium Chloride 0.9% 1, 131.9 000 ml In Empty Bag 1 bag @ 1 ML/KG/HR 131.9 mls/ hr IV .Q7H35M [facility] Rx#: [id number] Oral 100 Output: Urine 1250 300 Other: Voiding Method Urinal Urinal # Voids 1 Weight 139 kg 131.9 kg Results CBC & Chem 7: 01/10/23 04:04 01/10/23 04:04 Labs: Abnormal Lab Results - Last 24 Hours (Table) 01/09/23 01/09/23 01/09/23 Range/Units 22:07 22:07 22:07 Hgb 12.1 L (13.0-17.5) gm/dL Hct 36.9 L (39.0-53.0) % MCV 79.8 L (80.0-100.0) fL Lymphocytes # 0.8 L (1.0-4.8) k/uL INR (<1.2) APTT (22.0-30.0) sec Sodium (137-145) mmol/L BUN 23 H (9-20) mg/dL Glucose 141 H (74-99) mg/dL POC Glucose (mg/dL) (70-110) mg/dL Hemoglobin A1c (0.0-6.0) % Alkaline Phosphatase 137 H (38-126) U/L Troponin I 0.344 H* (0.000-0.034) ng/mL Albumin 3.3 L (3.5-5.0) g/dL HDL Cholesterol (40.00-60.00) mg/dL 01/09/23 01/09/23 01/10/23 Range/Units 22:07 23:03 04:04 Hgb (13.0-17.5) gm/dL Hct (39.0-53.0) % MCV (80.0-100.0) fL Lymphocytes # (1.0-4.8) k/uL INR 1.2 H (<1.2) APTT 31.3 H (22.0-30.0) sec Sodium (137-145) mmol/L BUN (9-20) mg/dL Glucose (74-99) mg/dL POC Glucose (mg/dL) 115 H (70-110) mg/dL Hemoglobin A1c (0.0-6.0) % Alkaline Phosphatase (38-126) U/L Troponin I (0.000-0.034) ng/mL Albumin (3.5-5.0) g/dL HDL Cholesterol (40.00-60.00) mg/dL 01/10/23 01/10/23 01/10/23 Range/Units 04:04 04:04 04:04 Hgb 12.0 L (13.0-17.5) gm/dL Hct 38.2 L (39.0-53.0) % MCV (80.0-100.0) fL Lymphocytes # 0.6 L (1.0-4.8) k/uL INR (<1.2) APTT (22.0-30.0) sec Sodium 136 L (137-145) mmol/L BUN (9-20) mg/dL Glucose 133 H (74-99) mg/dL POC Glucose (mg/dL) (70-110) mg/dL Hemoglobin A1c 7.0 H (0.0-6.0) % Alkaline Phosphatase (38-126) U/L Troponin I (0.000-0.034) ng/mL Albumin (3.5-5.0) g/dL HDL Cholesterol 30.30 L (40.00-60.00) mg/dL 01/10/23 01/10/23 Range/Units 07:06 11:31 Hgb (13.0-17.5) gm/dL Hct (39.0-53.0) % MCV (80.0-100.0) fL Lymphocytes # (1.0-4.8) k/uL INR (<1.2) APTT (22.0-30.0) sec Sodium (137-145) mmol/L BUN (9-20) mg/dL Glucose (74-99) mg/dL POC Glucose (mg/dL) 163 H 136 H (70-110) mg/dL Hemoglobin A1c (0.0-6.0) % Alkaline Phosphatase (38-126) U/L Troponin I (0.000-0.034) ng/mL Albumin (3.5-5.0) g/dL HDL Cholesterol (40.00-60.00) mg/dL Assessment and Plan Plan: 1patient with left fourth toe diabetic foot infection with underlying osteomyelitis in this patient who did have a outside surgery bone biopsy and culture which grew Peptostreptococcus and MSSA and the patient has been on IV cefazolin in the outpatient setting 2-keeping in mind the culture positive for Peptostreptococcus and MSSA I would recommend Unasyn 3 g every 6 hours while inpatient 3-local wound care with a dry Aquacel dressing change daily discussed with the RN We will follow on clinical condition and cultures to further adjust medication if needed Thank you for this consultation we will follow the patient along with you Time with Patient: Greater than 30
[2023-01-10 20:29] LABS: Glucose,Whole Blood 248 mg/dL (70-110)
--- NOTE | 2023-01-10 20:40 | P.HPIM ---
History of Present Illness H&P Date: 01/10/23 Chief Complaint: Chest pain This is a pleasant 67-year-old patient who follows with Dr. Cano. Chronic stable medical conditions include atrial fibrillation, CHF, diabetes, hy pertension, secondary and third toe on the right foot amputated. Patient's had a left fourth toe diabetic foot infection including a bone biopsy and culture done by the director of ancillary services and patient has been on IV cefazolin. Patient yesterday started out with left chest pain and shoulder pain. Some shortness of breath. No perspiration. No cough. Pain lasts for good at an after 40: The hospital. This morning patient underwent a cardiac cath with stenting. Postprocedure resting in bed in the ICU. Patient does ambulate with crutches. Pain control. Review of systems: GEN.: Tired EYES: None HEENT: None NECK: None RESPIRATORY: None CARDIOVASCULAR: None GASTROINTESTINAL: None GENITOURINARY: None MUSCULOSKELETAL: Joint pains LYMPHATICS: None HEMATOLOGICAL: None PSYCHIATRY: None NEUROLOGICAL: None Past medical history to include: Atrial fibrillation, CHF, diabetes, hypertension, left fourth toe osteomyelitis Social history former smoker. Retired. . Physical examination: VITAL SIGNS: 98.1, 89, 16, 172/102, 93% on room air GENERAL: BMI 39.4, declining but awake tired. EYES: Pupils equal. Conjunctiva normal. HEENT: External appearance of nose and ears normal, oral cavity grossly normal. NECK: JVD not raised; masses not palpable. HEART: First and second heart sounds are normal; no edema. LUNGS:[ Respiratory rate normal; decreased breath sounds. ABDOMEN: Soft, nontender, liver spleen not palpable, no masses palpable. PSYCH: Alert and oriented x3; mood and affect normal. MUSCULOSKELETAL:No Clubbing/cyanosis;muscles-grossly intact Extremities: Right foot second and third toe amputated. Left foot fourth toe infection NEUROLOGICAL: Cranial nerves grossly intact; no facial asymmetry, power and sensation grossly intact. LYMPHATICS: No lymph nodes palpable in the axilla and neck INVESTIGATIONS, reviewed in the clinical context: 2-D echocardiogram: EF 50-55% severe pulmonary hypertension January 10: White count 8.4 hemoglobin 12 platelets 359 potassium 4.7 creatinine 1.23 LDL 91 Troponin I 0.344 EKG tracing personally reviewed by me-atrial fibrillation. Rate 84 Chest x-ray film personally reviewed by me-: Bilateral interstitial opacities more so the basis. Cardiac catheterization: Stenting of the right PDA with the reduction from 70% and less than 5% Assessment and plan: -Non-ST elevation myocardial infarction -Angioplasty and stent, right PDA, by Dr. Maria A Pacheco Aspirin, eliquis, Lipitor, Toprol-XL -GERD Protonix -Essential hypertension Toprol-XL, Zestril, hydrochlorothiazide and amlodipine -IV heparin monitoring Follow PTT -Hyperlipidemia Lipitor -Severe pulmonary hypertension, secondary -Paroxysmal atrial fibrillation. Toprol-XL 100 mg daily. IV heparin. Eliquis from tomorrow -IV heparin monitoring, follow PTT -Left foot fourth toe cellulitis with acute osteomyelitis. IV Unasyn -Full code Follow-up with cardiology, ID. Discussed with the patient. Past Medical History Past Medical History: Atrial Fibrillation, Heart Failure, Diabetes Mellitus, Hypertension Additional Past Medical History / Comment(s): left foot wound History of Any Multi-Drug Resistant Organisms: None Reported Past Surgical History: Back Surgery, Hernia Repair Additional Past Surgical History / Comment(s): second and third toe on right foot amputated, left foot surgery Past Anesthesia/Blood Transfusion Reactions: No Reported Reaction Past Psychological History: No Psychological Hx Reported Smoking Status: Former smoker Past Alcohol Use History: None Reported Past Drug Use History: None Reported - Past Family History Father Family Medical History: Diabetes Mellitus Additional Family Medical History / Comment(s): in car accident at age 60 Mother Family Medical History: Myocardial Infarction (LA) Additional Family Medical History / Comment(s): at age 84 of heart problems Medications and Allergies Home Medications Medication Instructions Recorded Confirmed Type Aspirin EC [Ecotrin Low Dose] 81 mg PO DAILY 01/09/23 01/09/23 History Enalapril [Vasotec] 20 mg PO BID 01/09/23 01/09/23 History Furosemide [Lasix] 40 mg PO DAILY 01/09/23 01/09/23 History L.acidoph,Paracasei, B.lactis 1 cap PO DAILY 01/09/23 01/09/23 History [Probiotic] Metoprolol Succinate (ER) [Toprol 100 mg PO DAILY 01/09/23 01/09/23 History Xl] Warfarin [Coumadin] 5 mg PO DAILY 01/09/23 01/09/23 History metFORMIN HCL 1,000 mg PO BID 01/09/23 01/09/23 History Dulaglutide [Trulicity] 1.5 mg SQ SA 01/10/23 01/10/23 History sitaGLIPtin [Januvia] 100 mg PO DIRECTED 01/10/23 01/10/23 History Allergies Allergy/AdvReac Type Severity Reaction Status Date / Time carrot Allergy "Roof of Verified 01/09/23 22:11 mouth itches" walnut Allergy "Roof of Verified 01/09/23 22:11 mouth itches" adhesive tape AdvReac Itching Verified 01/09/23 22:11 Physical Exam Vitals: Vital Signs Temp Pulse Resp BP Pulse Ox 01/10/23 10:00 180/104 01/10/23 09:30 78 20 191/132 96 01/10/23 09:00 84 16 178/104 96 01/10/23 08:30 90 26 H 185/139 92 L 01/10/23 08:00 97.7 F 128 H 24 183/116 93 L 01/10/23 07:30 88 16 163/116 94 L 01/10/23 07:00 88 10 L 168/96 94 L 01/10/23 06:30 94 30 H 173/96 92 L 01/10/23 06:00 85 27 H 160/106 92 L 01/10/23 05:30 86 25 H 168/98 92 L 01/10/23 05:00 91 12 177/126 92 L 01/10/23 04:30 87 22 189/97 95 01/10/23 04:00 98.6 F 94 24 178/119 919 H 01/10/23 03:30 97 9 L 193/113 94 L 01/10/23 03:00 92 13 177/112 93 L 01/10/23 02:30 83 10 L 174/100 92 L 01/10/23 02:00 76 20 193/109 91 L 01/10/23 01:31 91 19 183/99 94 L 01/09/23 23:11 78 20 177/80 96 01/09/23 23:00 98.1 F 89 16 172/102 93 L Intake and Output 01/09/23 01/10/23 01/10/23 22:59 06:59 14:59 Intake Total 321.472 112.931 Output Total 1250 300 Balance -928.528 -187.069 Intake: IV 100 Magnesium Sulfate-D5w Pmx 100 1 gm In Dextrose/Water 1 100ml.bag @ 100 mls/hr IVPB ONCE ONE Rx#: [id number] Intake, IV Titration 121.472 112.931 Amount Heparin Sod,Pork in 0.45% 69.472 43.431 NaCl 25,000 unit In 0.45 % NaCl 1 250ml.bag @ 7.47 UNITS/KG/HR 9.996 mls/hr IV .Q24H [facility] Rx#: [id number] Nitroglycerin-D5w Pmx 50 52.000 69.5 mg In Dextrose/Water 1 250ml.bag @ 10 MCG/MIN 3 mls/hr IV .Q24H [facility] Rx#: [id number] Oral 100 Output: Urine 1250 300 Other: Voiding Method Urinal Urinal # Voids 1 Weight 139 kg 131.9 kg Results CBC & Chem 7: 01/10/23 04:04 01/10/23 04:04 Labs: Abnormal Lab Results - Last 24 Hours (Table) 01/09/23 01/09/23 01/09/23 Range/Units 22:07 22:07 22:07 Hgb 12.1 L (13.0-17.5) gm/dL Hct 36.9 L (39.0-53.0) % MCV 79.8 L (80.0-100.0) fL Lymphocytes # 0.8 L (1.0-4.8) k/uL INR (<1.2) APTT (22.0-30.0) sec Sodium (137-145) mmol/L BUN 23 H (9-20) mg/dL Glucose 141 H (74-99) mg/dL POC Glucose (mg/dL) (70-110) mg/dL Hemoglobin A1c (0.0-6.0) % Alkaline Phosphatase 137 H (38-126) U/L Troponin I 0.344 H* (0.000-0.034) ng/mL Albumin 3.3 L (3.5-5.0) g/dL HDL Cholesterol (40.00-60.00) mg/dL 01/09/23 01/09/23 01/10/23 Range/Units 22:07 23:03 04:04 Hgb (13.0-17.5) gm/dL Hct (39.0-53.0) % MCV (80.0-100.0) fL Lymphocytes # (1.0-4.8) k/uL INR 1.2 H (<1.2) APTT 31.3 H (22.0-30.0) sec Sodium (137-145) mmol/L BUN (9-20) mg/dL Glucose (74-99) mg/dL POC Glucose (mg/dL) 115 H (70-110) mg/dL Hemoglobin A1c (0.0-6.0) % Alkaline Phosphatase (38-126) U/L Troponin I (0.000-0.034) ng/mL Albumin (3.5-5.0) g/dL HDL Cholesterol (40.00-60.00) mg/dL 01/10/23 01/10/23 01/10/23 Range/Units 04:04 04:04 04:04 Hgb 12.0 L (13.0-17.5) gm/dL Hct 38.2 L (39.0-53.0) % MCV (80.0-100.0) fL Lymphocytes # 0.6 L (1.0-4.8) k/uL INR (<1.2) APTT (22.0-30.0) sec Sodium 136 L (137-145) mmol/L BUN (9-20) mg/dL Glucose 133 H (74-99) mg/dL POC Glucose (mg/dL) (70-110) mg/dL Hemoglobin A1c 7.0 H (0.0-6.0) % Alkaline Phosphatase (38-126) U/L Troponin I (0.000-0.034) ng/mL Albumin (3.5-5.0) g/dL HDL Cholesterol 30.30 L (40.00-60.00) mg/dL 01/10/23 Range/Units 07:06 Hgb (13.0-17.5) gm/dL Hct (39.0-53.0) % MCV (80.0-100.0) fL Lymphocytes # (1.0-4.8) k/uL INR (<1.2) APTT (22.0-30.0) sec Sodium (137-145) mmol/L BUN (9-20) mg/dL Glucose (74-99) mg/dL POC Glucose (mg/dL) 163 H (70-110) mg/dL Hemoglobin A1c (0.0-6.0) % Alkaline Phosphatase (38-126) U/L Troponin I (0.000-0.034) ng/mL Albumin (3.5-5.0) g/dL HDL Cholesterol (40.00-60.00) mg/dL Thrombosis Risk Factor Assmnt - Choose All That Apply Any of the Below Risk Factors Present?: Yes Each Factor Represents 1 point: Acute LA, Obesity (BMI >25), Swollen legs (current) Other Risk Factors: Yes Each Risk Factor Represents 2 Points: Age 61-74 years Other congenital or acquired thrombophilia - If yes, enter type in comment: No Thrombosis Risk Factor Assessment Total Risk Factor Score: 5 Thrombosis Risk Factor Assessment Level: High Risk
[2023-01-11 04:39] LABS: Basophils % (A) 0 %; Eosinophils # (A) 0.5 k/uL (0-0.7); Eosinophils % (A) 5 %; HCT 33.3 % (39.0-53.0); HGB 10.5 gm/dL (13.0-17.5); Lymphocytes # (A) 0.6 k/uL (1.0-4.8); Lymphocytes % (A) 6 %; MCH 25.4 pg (25.0-35.0); MCHC 31.6 g/dL (31.0-37.0); MCV 80.6 fL (80.0-100.0); Mean Platelet Volume 7.1; Monocytes # (A) 0.8 k/uL (0-1.0); Monocytes % (A) 8 %; Neutrophils # (A) 7.2 k/uL (1.3-7.7); Neutrophils % (A) 78 %; Platelet Count 330 k/uL (150-450); RBC 4.13 m/uL (4.30-5.90); RDW 13.9 % (11.5-15.5); WBC 9.2 k/uL (3.8-10.6)
[2023-01-11 04:52] LABS: Magnesium 1.8 mg/dL (1.6-2.3); Potassium 4.3 mmol/L (3.5-5.1)
[2023-01-11] MEDS ORDERED: NITROGLYCERIN-D5W PMX 50 MG in DEXTROSE/WATER 1 250ML.BAG IV SCH (05:30)
[2023-01-11] MEDS: AMPICILLIN-SULBACTAM 3 GM in SODIUM CHLORIDE 0.9% 100 ML IVPB SCH ×4 (05:34→23:43)
[2023-01-11 06:59] LABS: Glucose,Whole Blood 169 mg/dL (70-110)
[2023-01-11] MEDS ORDERED: HEPARIN SODIUM,PORCINE 2,500 UNIT in SODIUM CHLORIDE 0.9% 250 ML IRRIGATION PRN (07:00)
[2023-01-11] MEDS ORDERED: HEPARIN SODIUM,PORCINE 10,000 UNIT in SODIUM CHLORIDE 0.9% 1,000 ML IRRIGATION PRN (07:00)
[2023-01-11] MEDS: INSULIN ASPART (NovoLOG) 100 UNIT/ML VIAL SQ SCH ×4 (07:02→21:08)
[2023-01-11] MEDS: PANTOPRAZOLE 40 MG TABLET PO SCH (07:02)
--- NOTE | 2023-01-11 07:31 | P.PN ---
Subjective Progress Note Date: 01/11/23 PROGRESS NOTE The patient is a 67-year-old male with a known history of hypertension, atrial fibrillation, diabetes mellitus, followed by Dr. Pacheco who presented to [facility] with chest discomfort and was noted to be hypertensive. His troponin was mildly elevated and he was transferred for further evaluation. The patient has a known history of chronic A. fib fibrillation, anticoagulated with Coumadin but no history of ischemic heart disease. He has a history of CHF according to him. He presented to the emergency room with the chest discomfort, radiating to the left shoulder but had some respirophasic pattern. A CT angiogram showed no evidence of pulmonary embolism but he had evidence of calcifications of the coronary arteries. He continues to have mild discomfort. He denies any dy spnea, dizziness or palpitations. The discomfort occurred at rest. He has no history of PND or orthopnea. He has a history of diabetic with ulcer. He has a remote history of smoking that he stopped over 20 years ago. No recent cardiac workup is available to me. He is complaining of headache from the IV nitroglycerin January 11: The patient underwent cardiac catheterization yesterday and was found to have significant disease in the PDA and underwent stenting of that vessel. He has mild respirophasic chest discomfort today. His breathing is stable. His blood pressure is stable. He continues to be in atrial fibrillation with no evidence of malignant arrhythmia. His echocardiogram showed an ejection fraction of 50- 55%. He had evidence of severe pulmonary hypertension with moderate tricuspid regurgitation and mild aortic stenosis. He has diabetic foot infection with underlying osteomyelitis that has been treated. Medications: Aspirin, amlodipine 5 mg daily, Lipitor 40 mg daily, Plavix 75 mg daily. Insulin, lisinopril 20 mg twice a day, metoprolol succinate 100 mg daily. IV n itroglycerin. Hydrochlorothiazide 25 mg daily, Eliquis 5 mg twice a day starting this morning. PHYSICAL EXAMINATION: Blood pressure 160/80 heart rate 90 LUNGS: Clear to auscultation HEART: Irregular rate and rhythm, S1, S2. No S3. systolic ejection murmur ABDOMEN: Soft, nontender, no organomegaly EXTREMETIES: No edema, right radial pulse intact LAB: Potassium 4.3, creatinine 1.27, BUN 20, hemoglobin 10.5 IMPRESSION: 1. Status post stenting of the right PDA. Status post non-STEMI 2. Hypertension, improved 3. Pulmonary hypertension 4. Hyperlipidemia 5. History of diabetes 6. Osteomyelitis 7. Permanent atrial fibrillation PLAN: 1. Add hydralazine 2. Stop IV nitroglycerin 3. Increase amlodipine 4. Transfer to telemetry 5. Increase physical activity 6. If stable probable discharge in the next 24-48 hours Objective - Vital Signs Vital signs: Vital Signs Temp 97.4 F L 01/11/23 00:00 Pulse 117 H 01/11/23 07:00 Resp 20 01/11/23 07:00 BP 163/80 01/11/23 07:00 Pulse Ox 93 L 01/11/23 07:00 FiO2 Intake & Output 01/10/23 01/11/23 01/11/23 18:59 06:59 18:59 Intake Total 1062.231 228.7 Output Total 1260 975 Balance -197.769 -746.3 Weight 133.6 kg Intake: IV 200 200 Ampicillin-Sulbactam 3 gm 200 In Sodium Chloride 0.9% 100 ml @ 200 mls/hr IVPB Q6HR [facility] Rx#:[id number] Intake, IV Titration 862.231 28.7 Amount Ampicillin-Sulbactam 3 gm 100 In Sodium Chloride 0.9% 100 ml @ 200 mls/hr IVPB Q6HR [facility] Rx#:[id number] Heparin Sod,Pork in 0.45% 43.431 NaCl 25,000 unit In 0.45 % NaCl 1 250ml.bag @ 7.47 UNITS/KG/HR 9.996 mls/hr IV .Q24H [facility] Rx#: [id number] Nitroglycerin-D5w Pmx 50 191.200 mg In Dextrose/Water 1 250ml.bag @ 10 MCG/MIN 3 mls/hr IV .Q24H [facility] Rx#: [id number] Nitroglycerin-D5w Pmx 50 28.7 mg In Dextrose/Water 1 250ml.bag @ 10 MCG/MIN 3 mls/hr IV .Q24H [facility] Rx#: [id number] Sodium Chloride 0.9% 1, 527.6 000 ml In Empty Bag 1 bag @ 1 ML/KG/HR 131.9 mls/ hr IV .Q7H35M [facility] Rx#: [id number] Output: Urine 1260 975 Other: Voiding Method Urinal Urinal - Labs CBC & Chem 7: 01/11/23 03:27 01/11/23 03:27 Labs: Abnormal Lab Results - Last 24 Hours (Table) 01/10/23 01/10/23 01/10/23 Range/Units 04:04 04:04 11:31 RBC (4.30-5.90) m/uL Hgb (13.0-17.5) gm/dL Hct (39.0-53.0) % Lymphocytes # (1.0-4.8) k/uL APTT (22.0-30.0) sec Sodium (137-145) mmol/L Carbon Dioxide (22-30) mmol/L Creatinine (0.66-1.25) mg/dL Glucose (74-99) mg/dL POC Glucose (mg/dL) 136 H (70-110) mg/dL Hemoglobin A1c 7.0 H (0.0-6.0) % Calcium (8.4-10.2) mg/dL HDL Cholesterol 30.30 L (40.00-60.00) mg/dL 01/10/23 01/10/23 01/10/23 Range/Units 11:47 16:12 20:27 RBC (4.30-5.90) m/uL Hgb (13.0-17.5) gm/dL Hct (39.0-53.0) % Lymphocytes # (1.0-4.8) k/uL APTT 88.9 H (22.0-30.0) sec Sodium (137-145) mmol/L Carbon Dioxide (22-30) mmol/L Creatinine (0.66-1.25) mg/dL Glucose (74-99) mg/dL POC Glucose (mg/dL) 158 H 248 H (70-110) mg/dL Hemoglobin A1c (0.0-6.0) % Calcium (8.4-10.2) mg/dL HDL Cholesterol (40.00-60.00) mg/dL 01/11/23 01/11/23 01/11/23 Range/Units 03:27 03:27 06:58 RBC 4.13 L (4.30-5.90) m/uL Hgb 10.5 L (13.0-17.5) gm/dL Hct 33.3 L (39.0-53.0) % Lymphocytes # 0.6 L (1.0-4.8) k/uL APTT (22.0-30.0) sec Sodium 135 L (137-145) mmol/L Carbon Dioxide 31 H (22-30) mmol/L Creatinine 1.27 H (0.66-1.25) mg/dL Glucose 173 H (74-99) mg/dL POC Glucose (mg/dL) 169 H (70-110) mg/dL Hemoglobin A1c (0.0-6.0) % Calcium 8.0 L (8.4-10.2) mg/dL HDL Cholesterol (40.00-60.00) mg/dL
--- NOTE | 2023-01-11 08:20 | P.PN ---
Subjective Progress Note Date: 01/11/23 I'm seeing this patient in new consultation today 01/10/2023 in regard to ICU management. Patient is a 67-year-old white male with reported past medical history of hypertension, heart failure, atrial fibrillation anticoagulated on Coumadin, diabetes mellitus, a chronic diabetic foot ulcer and osteomyelitis requiring daily antibiotic infusions through a left PICC, and remote history of smoking. Patient started experiencing chest pain approximately 1 hour before presenting to [facility] yesterday evening. Patient was diagnosed with a non-STEMI at the outside facility. Patient's troponin peaked at 0.46. Patient was also profoundly hypertensive on arrival, and he was started on a nitroglyc hitesh infusion. While being worked up, the patient had a chest CTA which was negative for pulmonary embolism. It did show small bilateral pleural effusions and cardiomegaly. He was then transferred to [facility]. At our facility, the patient's troponin is now downtrending, and is currently 0.34. A repeat ECG shows atrial fibrillation with controlled ventricular rate of 80 bpm and no acute ischemic changes. Patient is currently resting in bed, on room air, in no acute distress. He does report some mild chest pain that radiates to the left shoulder. Denies chest palpitations, lightheadedness, syncope. Patient currently has low intensity heparin infusing per protocol. His blood pressure is still quite hypertensive, and there is a nitroglycerin infusion at 10 mics per minute, to be titrated for hypertension. Patient states that he took most of his cardiac medications besides his p.m. enalapril. A cardiology consult was placed. Patient's CBC on arrival showed a WBC count of 9.6, hemoglobin 12.1, hematocrit 36.9, platelets 362,000. INR was 1.1; patient states that he was t aking his Coumadin on an outpatient basis. Most recent BMP shows a sodium 137, potassium 4.7, chloride 100, serum CO2 29, BUN 23, creatinine 1.19, glucose 141. Patient is currently being monitored in the intensive care unit. On today's evaluation of 01/11/2023, the patient is calm and comfortable. Still having some pain shoulder pain and he describes that to be worse with breathing. He is not having any significant chest pain. His cardiac rhythm is atrial fibrillation with a controlled rate. Blood pressure remains elevated and the patient remains on nitroglycerin drip which is running at 65 mcg/m. The patient was started on hydralazine and this was started a dose of 25 mg by mouth twice a day. We are hoping to gradually wean him off the nitroglycerin drip for now. His post cardiac catheterization and the patient underwent stenting to PDA 1. His echocardiogram showed a preserved LV function and the patient had evidence of severe pulmonary hypertension with a PA pressure of around 65. He is known to have diabetes, hypertension, hyperlipidemia and history of chronic into f ibrillation. The patient is currently on anticoagulation with Eliquis. His IV amiodarone has been discontinued. Objective - Vital Signs Vital signs: Vital Signs Temp 97.9 F 01/11/23 08:00 Pulse 106 H 01/11/23 08:00 Resp 17 01/11/23 08:00 BP 165/92 01/11/23 08:00 Pulse Ox 95 01/11/23 08:00 FiO2 Intake & Output 01/10/23 01/11/23 01/11/23 18:59 06:59 18:59 Intake Total 1062.231 228.7 200 Output Total 1260 975 325 Balance -197.769 -746.3 -125 Weight 133.6 kg Intake: IV 200 200 Ampicillin-Sulbactam 3 gm 200 In Sodium Chloride 0.9% 100 ml @ 200 mls/hr IVPB Q6HR [facility] Rx#:[id number] Intake, IV Titration 862.231 28.7 Amount Ampicillin-Sulbactam 3 gm 100 In Sodium Chloride 0.9% 100 ml @ 200 mls/hr IVPB Q6HR [facility] Rx#:[id number] Heparin Sod,Pork in 0.45% 43.431 NaCl 25,000 unit In 0.45 % NaCl 1 250ml.bag @ 7.47 UNITS/KG/HR 9.996 mls/hr IV .Q24H [facility] Rx#: [id number] Nitroglycerin-D5w Pmx 50 191.200 mg In Dextrose/Water 1 250ml.bag @ 10 MCG/MIN 3 mls/hr IV .Q24H [facility] Rx#: [id number] Nitroglycerin-D5w Pmx 50 28.7 mg In Dextrose/Water 1 250ml.bag @ 10 MCG/MIN 3 mls/hr IV .Q24H [facility] Rx#: [id number] Sodium Chloride 0.9% 1, 527.6 000 ml In Empty Bag 1 bag @ 1 ML/KG/HR 131.9 mls/ hr IV .Q7H35M [facility] Rx#: [id number] Oral 200 Output: Urine 1260 975 325 Other: Voiding Method Urinal Urinal Urinal - Exam GENERAL EXAM: Alert, 67-year-old white morbidly obese male , comfortable in no apparent distress. The patient is currently on 2 L of oxygen by nasal cannula. HEAD: Normocephalic and atraumatic EYES: Normal reaction of pupils, equal size. NOSE: Clear with pink turbinates. THROAT: No erythema or exudates. NECK: No masses, no JVD. CHEST: No chest wall deformity. LUNGS: Equal air entry with no crackles, wheeze, rhonchi or dullness. No conversational dyspnea or accessory muscle use.. CVS: The patient has a grade 3/6 systolic ejection murmur and his underlying cardiac rhythm is a chest fibrillation ABDOMEN: Obese abdomen. No hepatosplenomegaly, active bowel sounds, no guarding or rigidity. SPINE: No scoliosis or deformity SKIN: Bilateral lower extremity erythema, left foot dressing clean dry and intact CENTRAL NERVOUS SYSTEM: No focal deficits, tone is normal in all 4 extremities. EXTREMITIES: There is bilateral lower extremity pitting edema. Peripheral pulses are intact. - Labs CBC & Chem 7: 01/11/23 03:27 01/11/23 03:27 Labs: Abnormal Lab Results - Last 24 Hours (Table) 01/10/23 01/10/23 01/10/23 Range/Units 04:04 04:04 11:31 RBC (4.30-5.90) m/uL Hgb (13.0-17.5) gm/dL Hct (39.0-53.0) % Lymphocytes # (1.0-4.8) k/uL APTT (22.0-30.0) sec Sodium (137-145) mmol/L Carbon Dioxide (22-30) mmol/L Creatinine (0.66-1.25) mg/dL Glucose (74-99) mg/dL POC Glucose (mg/dL) 136 H (70-110) mg/dL Hemoglobin A1c 7.0 H (0.0-6.0) % Calcium (8.4-10.2) mg/dL HDL Cholesterol 30.30 L (40.00-60.00) mg/dL 01/10/23 01/10/23 01/10/23 Range/Units 11:47 16:12 20:27 RBC (4.30-5.90) m/uL Hgb (13.0-17.5) gm/dL Hct (39.0-53.0) % Lymphocytes # (1.0-4.8) k/uL APTT 88.9 H (22.0-30.0) sec Sodium (137-145) mmol/L Carbon Dioxide (22-30) mmol/L Creatinine (0.66-1.25) mg/dL Glucose (74-99) mg/dL POC Glucose (mg/dL) 158 H 248 H (70-110) mg/dL Hemoglobin A1c (0.0-6.0) % Calcium (8.4-10.2) mg/dL HDL Cholesterol (40.00-60.00) mg/dL 01/11/23 01/11/23 01/11/23 Range/Units 03:27 03:27 06:58 RBC 4.13 L (4.30-5.90) m/uL Hgb 10.5 L (13.0-17.5) gm/dL Hct 33.3 L (39.0-53.0) % Lymphocytes # 0.6 L (1.0-4.8) k/uL APTT (22.0-30.0) sec Sodium 135 L (137-145) mmol/L Carbon Dioxide 31 H (22-30) mmol/L Creatinine 1.27 H (0.66-1.25) mg/dL Glucose 173 H (74-99) mg/dL POC Glucose (mg/dL) 169 H (70-110) mg/dL Hemoglobin A1c (0.0-6.0) % Calcium 8.0 L (8.4-10.2) mg/dL HDL Cholesterol (40.00-60.00) mg/dL Assessment and Plan Plan: NSTEMI, transferred from outside facility. Troponins are currently trending down, with the most recent troponin of 0.34. The patient is post cardiac catheterization stenting of the PDA and the procedure was done on 01/10/2023 Preserved LV function Hypertensive emergency, still on a nitroglycerin drip for blood pressure control. Hydralazine was added by cardiology today 25 mg by mouth twice a day. We are monitoring the blood pressure very closely. Is also metoprolol 100 mg by mouth daily, Zestril 20 mg by mouth twice a day, hydrochlorothiazide 25 mg by mouth daily. Severe pulmonary hypertension with a PA pressure of 69 Atrial fibrillation with controlled ventricular rate, reportedly anticoagulated on Coumadin on an outpatient basis. Anticoagulation with warfarin has been discontinued and the patient has been switched to Eliquis 5 mg by mouth twice a day Morbid obesity with a BMI of 41.6 Diabetes mellitus type 2 Chronic diabetic ulcer of the left foot with osteomyelitis and treatments at the wound care clinic. History of prior amputations of select metatarsals of the right foot Hyperlipidemia maintained on statins and the patient is currently on Lipitor 40 mg by mouth daily History of osteomyelitis due to diabetic foot ulcer and the patient was receiving IV antibiotics / PICC line and currently is on IV Unasyn Plan: Gradually wean off the nitroglycerin drip Continue Zestril, metoprolol, hydralazine and hydrochlorothiazide Continue anticoagulation with Eliquis Continue aspirin and Plavix for now post cardiac stenting Cardiac rhythm is atrial fibrillation Continue IV Unasyn Novolog insulin ACHS Protonix for GI prophylaxis We will continue to follow Keep in the ICU for now
[2023-01-11] MEDS ORDERED: MAGNESIUM SULFATE-D5W PMX 1 GM in DEXTROSE/WATER 1 100ML.BAG IVPB ONE (08:30)
[2023-01-11] MEDS ORDERED: ASPIRIN 81 MG PO SCH (09:00)
[2023-01-11] MEDS ORDERED: NON FORMULARY DRUG (Aspirin Ec 81 MG Tablet) PO SCH (09:00)
[2023-01-11] MEDS ORDERED: hydrALAZINE HCL 25 MG TAB PO SCH (09:00)
[2023-01-11] MEDS: ASPIRIN 81 MG PO SCH (09:28)
[2023-01-11] MEDS: hydroCHLOROthiazide 25 MG TAB PO SCH (09:28)
[2023-01-11] MEDS: ATORVASTATIN 40 MG TAB PO SCH (09:28)
[2023-01-11] MEDS: lisinopriL 20 MG TAB PO SCH ×2 (09:28→21:09)
[2023-01-11] MEDS: APIXABAN 5 MG TAB PO SCH ×2 (09:28→21:08)
[2023-01-11] MEDS: METOPROLOL SUCCINATE (ER) 100 MG TAB.ER.24H PO SCH (09:28)
[2023-01-11] MEDS: CLOPIDOGREL 75 MG TAB PO SCH (09:30)
[2023-01-11] MEDS: amLODIPine 5 MG TAB PO SCH ×2 (10:35→21:09)
[2023-01-11 11:46] LABS: Glucose,Whole Blood 199 mg/dL (70-110)
[2023-01-11 11:58] VITALS: BMI 39.9
[2023-01-11] MEDS: carvediloL 12.5 MG TAB PO SCH (15:09)
[2023-01-11 16:41] LABS: Glucose,Whole Blood 206 mg/dL (70-110)
[2023-01-11] MEDS: LACTOBACILLUS ACIDOPH & BULGAR 1 EACH PACKET PO SCH (16:44)
--- NOTE | 2023-01-11 17:07 | P.PN ---
Progress Note - Text Progress Note Date: 01/11/23 Chief Complaint: Chest pain This is a pleasant 67-year-old patient who follows with Dr. Cano. Chronic stable medical conditions include atrial fibrillation, CHF, diabetes, hypertension, secondary and third toe on the right foot amputated. Patient's had a left fourth toe diabetic foot infection including a bone biopsy and culture done by the anglesmith and patient has been on IV cefazolin. Patient yesterday started out with left chest pain and shoulder pain. Some s hortness of breath. No perspiration. No cough. Pain lasts for good at an after 40: The hospital. This morning patient underwent a cardiac cath with stenting. Postprocedure resting in bed in the ICU. Patient does ambulate with crutches. Pain control. January 11: ICU: Up in a chair. Had some chest pain earlier. IV heparin. Was an IV nitroglycerin drip. Discontinued by cardiology. Eating fair. IV Unasyn. Breathing stable. Active Medications Al Hydroxide/Mg Hydroxide (Mag Hydrox/Al Hydrox/Simeth 30 Ml Cup) 30 ml PO Q4HR PRN PRN Reason: Heartburn Alprazolam (Alprazolam 0.25 Mg Tab) 0.25 mg PO Q6HR PRN PRN Reason: Mild Anxiety Alprazolam (Alprazolam 0.5 Mg Tab) 0.5 mg PO Q6HR PRN PRN Reason: Moderate Anxiety Amlodipine Besylate (Amlodipine 5 Mg Tab) 5 mg PO BID [facility] Last Admin: 01/11/23 10:35 Dose: 5 mg Apixaban (Apixaban 5 Mg Tab) 5 mg PO BID [facility]; Protocol Last Admin: 01/11/23 09:28 Dose: 5 mg Aspirin (Aspirin 81 Mg) 81 mg PO DAILY [facility] Last Admin: 01/11/23 09:28 Dose: 81 mg Atorvastatin Calcium (Atorvastatin 40 Mg Tab) 40 mg PO DAILY [facility] Last Admin: 01/11/23 09:28 Dose: 40 mg Atropine Sulfate (Atropine Sulfate 0.1 Mg/Ml 10ml Syringe) 0.5 mg IV ONCE PRN PRN Reason: Symptomatic Bradycardia Carvedilol (Carvedilol 12.5 Mg Tab) 25 mg PO BID-W/MEALS [facility] Last Admin: 01/11/23 15:09 Dose: 25 mg Clopidogrel Bisulfate (Clopidogrel 75 Mg Tab) 75 mg PO DAILY [facility]; Protocol Last Admin: 01/11/23 09:30 Dose: 75 mg Dextrose/Water (Dextrose 50% Syringe 50 Ml) 25 ml IVP PER PROTOCOL PRN; Protocol PRN Reason: Hypoglycemia Dextrose/Water (Dextrose 50% Syringe 50 Ml) 50 ml IVP PER PROTOCOL PRN; Protocol PRN Reason: Hypoglycemia Hydralazine HCl (Hydralazine Hcl 50 Mg Tab) 50 mg PO BID [facility] Hydrochlorothiazide (Hydrochlorothiazide 25 Mg Tab) 25 mg PO DAILY [facility] Last Admin: 01/11/23 09:28 Dose: 25 mg Heparin Sodium (Porcine) 10, (000 unit/ Sodium Chloride) 1,001 mls @ 999 mls/hr IRRIGATION ONCE PRN PRN Reason: INTRA-OP Stop: 01/11/23 23:00 Heparin Sodium (Porcine) 2,500 (unit/ Sodium Chloride) 250.5 mls @ 250 mls/hr IRRIGATION ONCE PRN PRN Reason: INTRA-OP Stop: 01/11/23 23:00 Ampicillin Sodium/Sulbactam (Sodium 3 gm/ Sodium Chloride) 100 mls @ 200 mls/hr IVPB Q6HR [facility]; Protocol Last Admin: 01/11/23 12:08 Dose: 200 mls/hr Insulin Aspart (Insulin Aspart (Novolog) 100 Unit/Ml Vial) 0 unit SQ ACHS [facility]; Protocol Last Admin: 01/11/23 16:44 Dose: 4 unit Lactobacillus Acidoph/Bulgaricus (Lactobacillus Acidoph & Bulgar 1 Each Packet) 1 each PO DAILY [facility] Last Admin: 01/11/23 16:44 Dose: 1 each Lisinopril (Lisinopril 20 Mg Tab) 20 mg PO BID [facility] Last Admin: 01/11/23 09:28 Dose: 20 mg Miscellaneous Information (Magnesium Replacement Protocol 1 Each Misc) 1 each MISCELLANE DAILY PRN; Protocol PRN Reason: Per Protocol Miscellaneous Information (Rx Info: Iv Contrast Was Given 1 Each Misc) 1 each MISCELLANE DAILY PRN PRN Reason: Per Protocol Stop: 01/12/23 11:26 Naloxone HCl (Naloxone 0.4 Mg/Ml 1 Ml Vial) 0.2 mg IV Q2M PRN PRN Reason: Opioid Reversal Nitroglycerin (Nitroglycerin Sl Tabs 0.4 Mg Tab) 0.4 mg SUBLINGUAL Q5M PRN PRN Reason: Chest Pain Dulaglutide [ Trulicity] 1.5 Mg/0. 5 Ml Each 1.5 mg SQ SA [facility] Pantoprazole Sodium (Pantoprazole 40 Mg Tablet) 40 mg PO AC-BRKFST [facility] Last Admin: 01/11/23 07:02 Dose: 40 mg Zolpidem Tartrate (Zolpidem 5 Mg Tab) 5 mg PO HS PRN PRN Reason: Insomnia Past medical history to include: Atrial fibrillation, CHF, diabetes, hypertension, left fourth toe osteomyelitis Social history former smoker. Retired. . Physical examination: VITAL SIGNS: 97.6, 80, 18, 127/76, 93% room air GENERAL: BMI 39.4, up in a recliner EYES: Pupils equal. Conjunctiva normal. HEENT: External appearance of nose and ears normal, oral cavity grossly normal. NECK: JVD not raised; masses not palpable. HEART: First and second heart sounds are normal; no edema. LUNGS:[ Respiratory rate normal; decreased breath sounds. ABDOMEN: Soft, nontender, liver spleen not palpable, no masses palpable. PSYCH: Alert and oriented x3; mood and affect normal. MUSCULOSKELETAL:No Clubbing/cyanosis;muscles-grossly intact Extremities: Right foot second and third toe amputated. Left foot fourth toe infection NEUROLOGICAL: Cranial nerves grossly intact; no facial asymmetry, power and sensation grossly intact. INVESTIGATIONS, reviewed in the clinical context: January 11: White count 9.2 hemoglobin 10.5 platelets 3:30 potassium 4.3 creatinine 1.27 2-D echocardiogram: EF 50-55% severe pulmonary hypertension January 10: White count 8.4 hemoglobin 12 platelets 359 potassium 4.7 creatinine 1.23 LDL 91 Troponin I 0.344 EKG tracing personally reviewed by me-atrial fibrillation. Rate 84 Chest x-ray film personally reviewed by me-: Bilateral interstitial opacities more so the basis. Cardiac catheterization: Stenting of the right PDA with the reduction from 70% and less than 5% Assessment and plan: -Non-ST elevation myocardial infarction -Angioplasty and stent, right PDA, by Dr. Maria A Pacheco Aspirin, eliquis, Lipitor, Toprol-XL -GERD Protonix -Essential hypertension Toprol-XL, Zestril, hydrochlorothiazide and amlodipine -IV heparin monitoring Follow PTT -IV nitroglycerin drip. Discontinued today -Hyperlipidemia Lipitor -Severe pulmonary hypertension, secondary -Paroxysmal atrial fibrillation. Toprol-XL 100 mg daily. IV heparin. Eliquis from tomorrow -IV heparin monitoring, follow PTT -Left foot fourth toe cellulitis with acute osteomyelitis. IV Unasyn -Full code Discussed. IV Unasyn. IV heparin. IV nitroglycerin being discontinued.
[2023-01-11] MEDS: hydrALAZINE HCL 25 MG TAB PO SCH ×2 (19:04→22:15)
--- NOTE | 2023-01-11 19:24 | P.PN ---
Subjective Progress Note Date: 01/11/23 Principal diagnosis: Left fourth toe acute osteomyelitis MSSA/diabetic foot infection Patient is a 67-year-old male with a recent diagnosis of left fourth toe ostial myelitis with outpatient culture positive for Peptostreptococcus and MSSA presented to the hospital with acute TX in this patient who is status post PTCA and stenting of the right PDA, On today's evaluation and that is 01/11/2023, the patient denies having any fever or chills patient chest pain has improved and is breathing comfortably, the patient denies nausea no vomiting no abdominal pain or diarrhea Objective - Vital Signs Vital signs: Vital Signs Temp 98.4 F 01/11/23 12:00 Pulse 83 01/11/23 13:30 Resp 20 01/11/23 13:30 BP 131/77 01/11/23 13:30 Pulse Ox 95 01/11/23 13:30 FiO2 Intake & Output 01/10/23 01/11/23 01/11/23 18:59 06:59 18:59 Intake Total 1062.231 228.7 500 Output Total 1260 975 325 Balance -197.769 -746.3 175 Weight 133.6 kg 133.6 kg Intake: IV 200 200 100 Ampicillin-Sulbactam 3 gm 200 100 In Sodium Chloride 0.9% 100 ml @ 200 mls/hr IVPB Q6HR [facility] Rx#:[id number] Intake, IV Titration 862.231 28.7 Amount Ampicillin-Sulbactam 3 gm 100 In Sodium Chloride 0.9% 100 ml @ 200 mls/hr IVPB Q6HR [facility] Rx#:[id number] Heparin Sod,Pork in 0.45% 43.431 NaCl 25,000 unit In 0.45 % NaCl 1 250ml.bag @ 7.47 UNITS/KG/HR 9.996 mls/hr IV .Q24H [facility] Rx#: [id number] Nitroglycerin-D5w Pmx 50 191.200 mg In Dextrose/Water 1 250ml.bag @ 10 MCG/MIN 3 mls/hr IV .Q24H [facility] Rx#: [id number] Nitroglycerin-D5w Pmx 50 28.7 mg In Dextrose/Water 1 250ml.bag @ 10 MCG/MIN 3 mls/hr IV .Q24H [facility] Rx#: [id number] Sodium Chloride 0.9% 1, 527.6 000 ml In Empty Bag 1 bag @ 1 ML/KG/HR 131.9 mls/ hr IV .Q7H35M [facility] Rx#: [id number] Oral 400 Output: Urine 1260 975 325 Other: Voiding Method Urinal Urinal Urinal # Voids 1 # Bowel Movements 1 - Exam GENERAL DESCRIPTION: An elderly male up in the chair in no distress RESPIRATORY SYSTEM: Unlabored breathing , decreased breath sounds at bases HEART: S1 S2 regular rate and rhythm , ABDOMEN: Soft , no tenderness EXTREMITIES: No edema feet - Labs CBC & Chem 7: 01/11/23 03:27 01/11/23 03:27 Labs: Abnormal Lab Results - Last 24 Hours (Table) 01/10/23 01/10/23 01/11/23 Range/Units 16:12 20:27 03:27 RBC 4.13 L (4.30-5.90) m/uL Hgb 10.5 L (13.0-17.5) gm/dL Hct 33.3 L (39.0-53.0) % Lymphocytes # 0.6 L (1.0-4.8) k/uL Sodium (137-145) mmol/L Carbon Dioxide (22-30) mmol/L Creatinine (0.66-1.25) mg/dL Glucose (74-99) mg/dL POC Glucose (mg/dL) 158 H 248 H (70-110) mg/dL Calcium (8.4-10.2) mg/dL 01/11/23 01/11/23 01/11/23 Range/Units 03:27 06:58 11:44 RBC (4.30-5.90) m/uL Hgb (13.0-17.5) gm/dL Hct (39.0-53.0) % Lymphocytes # (1.0-4.8) k/uL Sodium 135 L (137-145) mmol/L Carbon Dioxide 31 H (22-30) mmol/L Creatinine 1.27 H (0.66-1.25) mg/dL Glucose 173 H (74-99) mg/dL POC Glucose (mg/dL) 169 H 199 H (70-110) mg/dL Calcium 8.0 L (8.4-10.2) mg/dL Assessment and Plan (1) Acute osteomyelitis of left foot Current Visit: Yes Status: Acute Code(s): M86.172 - OTHER ACUTE OSTEOMYELITIS, LEFT ANKLE AND FOOT SNOMED Code(s): 0550919281323895 Plan: 1patient with left fourth toe diabetic foot infection with underlying osteomyelitis in this patient who did have a outside surgery bone biopsy and culture which grew Peptostreptococcus and MSSA and the patient has been on IV cefazolin in the outpatient setting 2Outpatient culture positive for Peptostreptococcus and MSSA 3-local wound care with a dry Aquacel dressing change daily 4patient to continue with Unasyn 3 g every 6 hours and monitor clinical course closely Time with Patient: Less than 30
[2023-01-11 20:14] LABS: Glucose,Whole Blood 211 mg/dL (70-110)
[2023-01-11] MEDS ORDERED: hydrALAZINE HCL 50 MG TAB PO SCH (21:00)
[2023-01-12] MEDS: AMPICILLIN-SULBACTAM 3 GM in SODIUM CHLORIDE 0.9% 100 ML IVPB SCH ×4 (06:16→23:42)
[2023-01-12 06:46] LABS: Glucose,Whole Blood 135 mg/dL (70-110)
[2023-01-12] MEDS: carvediloL 12.5 MG TAB PO SCH ×3 (06:48→17:21)
[2023-01-12] MEDS: INSULIN ASPART (NovoLOG) 100 UNIT/ML VIAL SQ SCH ×4 (06:53→20:56)
[2023-01-12] MEDS: PANTOPRAZOLE 40 MG TABLET PO SCH (06:54)
--- NOTE | 2023-01-12 07:42 | P.PN ---
Subjective Progress Note Date: 01/12/23 PROGRESS NOTE The patient is a 67-year-old male with a known history of hypertension, atrial fibrillation, diabetes mellitus, followed by Dr. Pacheco who presented to [facility] with chest discomfort and was noted to be hypertensive. His troponin was mildly elevated and he was transferred for further evaluation. The patient has a known history of chronic A. fib fibrillation, anticoagulated with Coumadin but no history of ischemic heart disease. He has a history of CHF according to him. He presented to the emergency room with the chest discomfort, radiating to the left shoulder but had some respirophasic pattern. A CT angiogram showed no evidence of pulmonary embolism but he had evidence of calcifications of the coronary arteries. He continues to have mild discomfort. He denies any dy spnea, dizziness or palpitations. The discomfort occurred at rest. He has no history of PND or orthopnea. He has a history of diabetic with ulcer. He has a remote history of smoking that he stopped over 20 years ago. No recent cardiac workup is available to me. He is complaining of headache from the IV nitroglycerin January 11: The patient underwent cardiac catheterization yesterday and was found to have significant disease in the PDA and underwent stenting of that vessel. He has mild respirophasic chest discomfort today. His breathing is stable. His blood pressure is stable. He continues to be in atrial fibrillation with no evidence of malignant arrhythmia. His echocardiogram showed an ejection fraction of 50- 55%. He had evidence of severe pulmonary hypertension with moderate tricuspid regurgitation and mild aortic stenosis. He has diabetic foot infection with underlying osteomyelitis that has been treated. January 12: The patient feels well this morning, his blood pressures under better control. He denies any chest discomfort except when taking deep breaths. His breathing is stable. He continues to be in atrial fibrillation with controlled ventricular response. There is no evidence of ventricular ectopic activity. Urinary output has been stable. Hemodynamically he is stable. He has been off IV nitroglycerin since yesterday. Medications: Aspirin, amlodipine 5 mg twice a day, Lipitor 40 mg daily, Plavix 75 mg daily. Insulin, lisinopril 20 mg twice a day, Coreg 25 mg twice a day, Hydrochlorothiazide 25 mg daily, Eliquis 5 mg twice a day , Hydralazine 25 mg 3 times a day PHYSICAL EXAMINATION: Blood pressure 150/80 heart rate 85 LUNGS: Clear to auscultation HEART: Irregular rate and rhythm, S1, S2. No S3. systolic ejection murmur ABDOMEN: Soft, nontender, no organomegaly, obese EXTREMETIES: Mild erythema, +1 edema LAB: Pending IMPRESSION: 1. Status post stenting of the right PDA. Status post non-STEMI 2. Hypertension, improved 3. Pulmonary hypertension 4. Hyperlipidemia 5. History of diabetes 6. Osteomyelitis 7. Permanent atrial fibrillation PLAN: 1. Change hydralazine to 50 mg twice a day 2. Increase physical activity 3. If stable probable discharge home tomorrow and follow-up as outpatient by Dr. Pacheco Objective - Vital Signs Vital signs: Vital Signs Temp 98.0 F 01/12/23 04:00 Pulse 85 01/12/23 07:00 Resp 15 01/12/23 07:00 BP 150/84 01/12/23 07:00 Pulse Ox 96 01/12/23 07:00 FiO2 Intake & Output 01/11/23 01/12/23 01/12/23 18:59 06:59 18:59 Intake Total 900 400 Output Total 325 500 0 Balance 575 -100 0 Weight 133.6 kg 136 kg Intake: IV 200 200 Ampicillin-Sulbactam 3 gm 200 200 In Sodium Chloride 0.9% 100 ml @ 200 mls/hr IVPB Q6HR [facility] Rx#:[id number] Oral 700 200 Output: Urine 325 500 0 Other: Voiding Method Urinal Urinal # Voids 1 # Bowel Movements 1 - Labs CBC & Chem 7: 01/11/23 03:27 01/11/23 03:27 Labs: Abnormal Lab Results - Last 24 Hours (Table) 01/11/23 01/11/23 01/11/23 Range/Units 11:44 16:39 20:13 POC Glucose (mg/dL) 199 H 206 H 211 H (70-110) mg/dL 01/12/23 Range/Units 06:45 POC Glucose (mg/dL) 135 H (70-110) mg/dL
[2023-01-12] MEDS: hydrALAZINE HCL 50 MG TAB PO SCH ×2 (08:31→20:56)
[2023-01-12] MEDS: hydroCHLOROthiazide 25 MG TAB PO SCH (08:32)
[2023-01-12] MEDS: CLOPIDOGREL 75 MG TAB PO SCH (08:32)
[2023-01-12] MEDS: amLODIPine 5 MG TAB PO SCH (08:32)
[2023-01-12] MEDS: ATORVASTATIN 40 MG TAB PO SCH (08:32)
[2023-01-12] MEDS: ASPIRIN 81 MG PO SCH (08:32)
[2023-01-12] MEDS: APIXABAN 5 MG TAB PO SCH ×2 (08:32→20:55)
[2023-01-12] MEDS: lisinopriL 20 MG TAB PO SCH ×2 (08:34→20:56)
[2023-01-12] MEDS: LACTOBACILLUS ACIDOPH & BULGAR 1 EACH PACKET PO SCH (08:34)
[2023-01-12 08:39] LABS: Calcium 8.1 mg/dL (8.4-10.2); Potassium 4.1 mmol/L (3.5-5.1)
--- NOTE | 2023-01-12 08:57 | P.PN ---
Subjective Progress Note Date: 01/12/23 I'm seeing this patient in new consultation today 01/10/2023 in regard to ICU management. Patient is a 67-year-old white male with reported past medical history of hypertension, heart failure, atrial fibrillation anticoagulated on Coumadin, diabetes mellitus, a chronic diabetic foot ulcer and osteomyelitis requiring daily antibiotic infusions through a left PICC, and remote history of smoking. Patient started experiencing chest pain approximately 1 hour before presenting to [facility] yesterday evening. Patient was diagnosed with a non-STEMI at the outside facility. Patient's troponin peaked at 0.46. Patient was also profoundly hypertensive on arrival, and he was started on a nitroglyc hitesh infusion. While being worked up, the patient had a chest CTA which was negative for pulmonary embolism. It did show small bilateral pleural effusions and cardiomegaly. He was then transferred to [facility]. At our facility, the patient's troponin is now downtrending, and is currently 0.34. A repeat ECG shows atrial fibrillation with controlled ventricular rate of 80 bpm and no acute ischemic changes. Patient is currently resting in bed, on room air, in no acute distress. He does report some mild chest pain that radiates to the left shoulder. Denies chest palpitations, lightheadedness, syncope. Patient currently has low intensity heparin infusing per protocol. His blood pressure is still quite hypertensive, and there is a nitroglycerin infusion at 10 mics per minute, to be titrated for hypertension. Patient states that he took most of his cardiac medications besides his p.m. enalapril. A cardiology consult was placed. Patient's CBC on arrival showed a WBC count of 9.6, hemoglobin 12.1, hematocrit 36.9, platelets 362,000. INR was 1.1; patient states that he was t aking his Coumadin on an outpatient basis. Most recent BMP shows a sodium 137, potassium 4.7, chloride 100, serum CO2 29, BUN 23, creatinine 1.19, glucose 141. Patient is currently being monitored in the intensive care unit. On today's evaluation of 01/11/2023, the patient is calm and comfortable. Still having some pain shoulder pain and he describes that to be worse with breathing. He is not having any significant chest pain. His cardiac rhythm is atrial fibrillation with a controlled rate. Blood pressure remains elevated and the patient remains on nitroglycerin drip which is running at 65 mcg/m. The patient was started on hydralazine and this was started a dose of 25 mg by mouth twice a day. We are hoping to gradually wean him off the nitroglycerin drip for now. His post cardiac catheterization and the patient underwent stenting to PDA 1. His echocardiogram showed a preserved LV function and the patient had evidence of severe pulmonary hypertension with a PA pressure of around 65. He is known to have diabetes, hypertension, hyperlipidemia and history of chronic into f ibrillation. The patient is currently on anticoagulation with Eliquis. His IV amiodarone has been discontinued. On 01/12/2023, the patient is being seen for a follow-up. The patient is doing well. No new complaints. His blood pressures under much better control and the patient is currently off the nitroglycerin drip. He is on a combination of antihypertensive medications for now and the most recent blood pressure is 125/67. He is on 2 L of oxygen by nasal cannula. He has undergone cardiac catheterization and stenting to the PDA 1. He has a preserved LV function with significant pulmonary hypertension. He remains on anticoagulation with Eliquis.Blood work from today shows a sodium level of 135, potassium level of 4.1, bicarb is 28, BUN is 23 and a creatinine of 1.4. CBC still pending for now. He remains on IV Unasyn regarding chronic osteomyelitis and a draining wound in his left lower extremity. His undergone previous amputations. In terms of blood pressure control, the patient is taking amlodipine 5 mg by mouth twice a day, Coreg 25 mg by mouth twice a day, hydralazine 50 mg twice a day, hydrochlorothiazide 25 mg on a daily basis, and is also on Zestril 20 mg by [facility] twice a day.. He remains on a combination of aspirin and Plavix. Objective - Vital Signs Vital signs: Vital Signs Temp 98.0 F 01/12/23 04:00 Pulse 85 01/12/23 07:00 Resp 15 01/12/23 07:00 BP 150/84 01/12/23 07:00 Pulse Ox 96 01/12/23 07:00 FiO2 Intake & Output 01/11/23 01/12/23 01/12/23 18:59 06:59 18:59 Intake Total 900 400 Output Total 325 500 0 Balance 575 -100 0 Weight 133.6 kg 136 kg Intake: IV 200 200 Ampicillin-Sulbactam 3 gm 200 200 In Sodium Chloride 0.9% 100 ml @ 200 mls/hr IVPB Q6HR [facility] Rx#:[id number] Oral 700 200 Output: Urine 325 500 0 Other: Voiding Method Urinal Urinal # Voids 1 # Bowel Movements 1 - Exam GENERAL EXAM: Alert, 67-year-old white morbidly obese male , comfortable in no apparent distress. The patient is currently on 2 L of oxygen by nasal cannula. HEAD: Normocephalic and atraumatic EYES: Normal reaction of pupils, equal size. NOSE: Clear with pink turbinates. THROAT: No erythema or exudates. NECK: No masses, no JVD. CHEST: No chest wall deformity. LUNGS: Equal air entry with no crackles, wheeze, rhonchi or dullness. No co nversational dyspnea or accessory muscle use.. CVS: The patient has a grade 3/6 systolic ejection murmur and his underlying cardiac rhythm is a chest fibrillation ABDOMEN: Obese abdomen. No hepatosplenomegaly, active bowel sounds, no guarding or rigidity. SPINE: No scoliosis or deformity SKIN: Bilateral lower extremity erythema, left foot dressing clean dry and intact CENTRAL NERVOUS SYSTEM: No focal deficits, tone is normal in all 4 extremities. EXTREMITIES: There is bilateral lower extremity pitting edema. Peripheral pulses are intact. - Labs CBC & Chem 7: 01/11/23 03:27 01/12/23 06:12 Labs: Abnormal Lab Results - Last 24 Hours (Table) 01/11/23 01/11/23 01/11/23 Range/Units 11:44 16:39 20:13 Sodium (137-145) mmol/L BUN (9-20) mg/dL Creatinine (0.66-1.25) mg/dL Glucose (74-99) mg/dL POC Glucose (mg/dL) 199 H 206 H 211 H (70-110) mg/dL Calcium (8.4-10.2) mg/dL 01/12/23 01/12/23 Range/Units 06:12 06:45 Sodium 135 L (137-145) mmol/L BUN 23 H (9-20) mg/dL Creatinine 1.42 H (0.66-1.25) mg/dL Glucose 142 H (74-99) mg/dL POC Glucose (mg/dL) 135 H (70-110) mg/dL Calcium 8.1 L (8.4-10.2) mg/dL Assessment and Plan Plan: NSTEMI, transferred from outside facility. Troponins are currently trending down, with the most recent troponin of 0.34. The patient is post cardiac ca theterization stenting of the PDA and the procedure was done on 01/10/2023 Preserved LV function Hypertensive emergency, recovered and the patient is currently off the nitroglycerin drip. He is on a combination of antihypertensive medication including amlodipine 5 mg twice a day, Coreg 25 mg twice a day, hydrochlorothiazide and hydralazine. He is also on Zestril 20 mg twice a day. Severe pulmonary hypertension with a PA pressure of 69 Atrial fibrillation with controlled ventricular rate, reportedly anticoagulated on Coumadin on an outpatient basis. Anticoagulation with warfarin has been discontinued and the patient has been switched to Eliquis 5 mg by mouth twice a day Morbid obesity with a BMI of 41.6 Diabetes mellitus type 2 Chronic diabetic ulcer of the left foot with osteomyelitis and treatments at the wound care clinic. History of prior amputations of select metatarsals of the right foot Hyperlipidemia maintained on statins and the patient is currently on Lipitor 40 mg by mouth daily History of osteomyelitis due to diabetic foot ulcer and the patient was receiving IV antibiotics / PICC line and currently is on IV Unasyn Plan: Patient is off nitroglycerin drip Continue Zestril, Coreg, hydralazine and hydrochlorothiazide Continue anticoagulation with Eliquis Continue aspirin and Plavix for now post cardiac stenting Cardiac rhythm is atrial fibrillation Continue IV Unasyn Novolog insulin ACHS Protonix for GI prophylaxis We will continue to follow Wean down FiO2 currently on 2 L. He should be be able to transition to room air oxygen. Transfer out of the intensive care unit today.
[2023-01-12 11:40] LABS: Glucose,Whole Blood 210 mg/dL (70-110)
--- NOTE | 2023-01-12 15:20 | P.PN ---
Progress Note - Text Progress Note Date: 01/12/23 Chief Complaint: Chest pain This is a pleasant 67-year-old patient who follows with Dr. Cano. Chronic stable medical conditions include atrial fibrillation, CHF, diabetes, hypertension, secondary and third toe on the right foot amputated. Patient's had a left fourth toe diabetic foot infection including a bone biopsy and culture done by the civil engineering draftsperson and patient has been on IV cefazolin. Patient yesterday started out with left chest pain and shoulder pain. Some s hortness of breath. No perspiration. No cough. Pain lasts for good at an after 40: The hospital. This morning patient underwent a cardiac cath with stenting. Postprocedure resting in bed in the ICU. Patient does ambulate with crutches. Pain control. January 11: ICU: Up in a chair. Had some chest pain earlier. IV heparin. Was an IV nitroglycerin drip. Discontinued by cardiology. Eating fair. IV Unasyn. Breathing stable. January 12: ICU. Up in a chair. Occasional pain in the left shoulder area. Eating well. Had a BM yesterday. Possible planning for discharge tomorrow per cardiology. Active Medications Al Hydroxide/Mg Hydroxide (Mag Hydrox/Al Hydrox/Simeth 30 Ml Cup) 30 ml PO Q4HR PRN PRN Reason: Heartburn Alprazolam (Alprazolam 0.25 Mg Tab) 0.25 mg PO Q6HR PRN PRN Reason: Mild Anxiety Alprazolam (Alprazolam 0.5 Mg Tab) 0.5 mg PO Q6HR PRN PRN Reason: Moderate Anxiety Amlodipine Besylate (Amlodipine 5 Mg Tab) 5 mg PO DAILY [facility] Apixaban (Apixaban 5 Mg Tab) 5 mg PO BID [facility]; Protocol Last Admin: 01/12/23 08:32 Dose: 5 mg Aspirin (Aspirin 81 Mg) 81 mg PO DAILY [facility] Last Admin: 01/12/23 08:32 Dose: 81 mg Atorvastatin Calcium (Atorvastatin 40 Mg Tab) 40 mg PO DAILY [facility] Last Admin: 01/12/23 08:32 Dose: 40 mg Atropine Sulfate (Atropine Sulfate 0.1 Mg/Ml 10ml Syringe) 0.5 mg IV ONCE PRN PRN Reason: Symptomatic Bradycardia Carvedilol (Carvedilol 12.5 Mg Tab) 25 mg PO BID-W/MEALS [facility] Last Admin: 01/12/23 07:00 Dose: 25 mg Clopidogrel Bisulfate (Clopidogrel 75 Mg Tab) 75 mg PO DAILY [facility]; Protocol Last Admin: 01/12/23 08:32 Dose: 75 mg Dextrose/Water (Dextrose 50% Syringe 50 Ml) 25 ml IVP PER PROTOCOL PRN; Protocol PRN Reason: Hypoglycemia Dextrose/Water (Dextrose 50% Syringe 50 Ml) 50 ml IVP PER PROTOCOL PRN; Protocol PRN Reason: Hypoglycemia Hydralazine HCl (Hydralazine Hcl 50 Mg Tab) 50 mg PO BID [facility] Last Admin: 01/12/23 08:31 Dose: 50 mg Hydrochlorothiazide (Hydrochlorothiazide 25 Mg Tab) 25 mg PO DAILY [facility] Last Admin: 01/12/23 08:32 Dose: 25 mg Ampicillin Sodium/Sulbactam (Sodium 3 gm/ Sodium Chloride) 100 mls @ 200 mls/hr IVPB Q6HR [facility]; Protocol Last Admin: 01/12/23 11:43 Dose: 200 mls/hr Insulin Aspart (Insulin Aspart (Novolog) 100 Unit/Ml Vial) 0 unit SQ ACHS [facility]; Protocol Last Admin: 01/12/23 11:43 Dose: 4 unit Lactobacillus Acidoph/Bulgaricus (Lactobacillus Acidoph & Bulgar 1 Each Packet) 1 each PO DAILY [facility] Last Admin: 01/12/23 08:34 Dose: 1 each Lisinopril (Lisinopril 20 Mg Tab) 20 mg PO BID [facility] Last Admin: 01/12/23 08:34 Dose: 20 mg Miscellaneous Information (Magnesium Replacement Protocol 1 Each Misc) 1 each MISCELLANE DAILY PRN; Protocol PRN Reason: Per Protocol Naloxone HCl (Naloxone 0.4 Mg/Ml 1 Ml Vial) 0.2 mg IV Q2M PRN PRN Reason: Opioid Reversal Nitroglycerin (Nitroglycerin Sl Tabs 0.4 Mg Tab) 0.4 mg SUBLINGUAL Q5M PRN PRN Reason: Chest Pain Dulaglutide [ Trulicity] 1.5 Mg/0. 5 Ml Each 1.5 mg SQ SA [facility] Pantoprazole Sodium (Pantoprazole 40 Mg Tablet) 40 mg PO AC-BRKFST [facility] Last Admin: 01/12/23 06:54 Dose: 40 mg Zolpidem Tartrate (Zolpidem 5 Mg Tab) 5 mg PO HS PRN PRN Reason: Insomnia Past medical history to include: Atrial fibrillation, CHF, diabetes, hypertension, left fourth toe osteomyelitis Social history former smoker. Retired. . Physical examination: VITAL SIGNS: 97.8, 77, 25, 135/78, 92% on 2 L GENERAL: BMI 39.4, up in a recliner EYES: Pupils equal. Conjunctiva normal. HEENT: External appearance of nose and ears normal, oral cavity grossly normal. NECK: JVD not raised; masses not palpable. HEART: First and second heart sounds are normal; no edema. LUNGS:[ Respiratory rate normal; decreased breath sounds. ABDOMEN: Soft, nontender, liver spleen not palpable, no masses palpable. PSYCH: Alert and oriented x3; mood and affect normal. MUSCULOSKELETAL:No Clubbing/cyanosis;muscles-grossly intact Extremities: Right foot second and third toe amputated. Left foot fourth toe infection NEUROLOGICAL: Cranial nerves grossly intact; no facial asymmetry, power and sensation grossly intact. INVESTIGATIONS, reviewed in the clinical context: January 12: Potassium 4.1 BUN 23 creatinine 1.42 January 11: White count 9.2 hemoglobin 10.5 platelets 3:30 potassium 4.3 creatinine 1.27 2-D echocardiogram: EF 50-55% severe pulmonary hypertension January 10: White count 8.4 hemoglobin 12 platelets 359 potassium 4.7 creatinine 1.23 LDL 91 Troponin I 0.344 EKG tracing personally reviewed by me-atrial fibrillation. Rate 84 Chest x-ray film personally reviewed by me-: Bilateral interstitial opacities more so the basis. Cardiac catheterization: Stenting of the right PDA with the reduction from 70% and less than 5% Assessment and plan: -Non-ST elevation myocardial infarction -Angioplasty and stent, right PDA, by Dr. Maria A Pacheco Aspirin, eliquis, Lipitor, Toprol-XL -GERD Protonix -Essential hypertension Toprol-XL, Zestril, hydrochlorothiazide and amlodipine -Hyperlipidemia Lipitor -Severe pulmonary hypertension, secondary -Paroxysmal atrial fibrillation. Toprol-XL 100 mg daily. Eliquis -Left foot fourth toe cellulitis with acute osteomyelitis growing Peptostreptococcus and MSSA from outside facility. IV Unasyn. Local wound care. Try Aquacel dressing change daily -Full code Discussed. IV Unasyn. Eliquis. Patient will likely be going home tomorrow
[2023-01-12 16:21] LABS: Glucose,Whole Blood 169 mg/dL (70-110)
--- NOTE | 2023-01-12 16:24 | P.PN ---
Subjective Progress Note Date: 01/12/23 Principal diagnosis: Left fourth toe acute osteomyelitis MSSA/diabetic foot infection Patient is a 67-year-old male with a recent diagnosis of left fourth toe ostial myelitis with outpatient culture positive for Peptostreptococcus and MSSA presented to the hospital with acute VT in this patient who is status post PTCA and stenting of the right PDA, On today's evaluation and that is 01/12/2023, the patient remains to be afebrile, patient chest pain has improved and is breathing comfortably on nasal cannula oxygen, the patient denies nausea no vomiting no abdominal pain or diarrhea Objective - Vital Signs Vital signs: Vital Signs Temp 97.8 F 01/12/23 13:00 Pulse 77 01/12/23 13:00 Resp 25 H 01/12/23 13:00 BP 135/78 01/12/23 13:00 Pulse Ox 90 L 01/12/23 13:00 FiO2 Intake & Output 01/11/23 01/12/23 01/12/23 18:59 06:59 18:59 Intake Total 900 400 100 Output Total 325 500 0 Balance 575 -100 100 Weight 133.6 kg 136 kg Intake: IV 200 200 Ampicillin-Sulbactam 3 gm 200 200 In Sodium Chloride 0.9% 100 ml @ 200 mls/hr IVPB Q6HR [facility] Rx#:[id number] Oral 700 200 100 Output: Urine 325 500 0 Other: Voiding Method Urinal Urinal Urinal # Voids 1 # Bowel Movements 1 - Exam GENERAL DESCRIPTION: An elderly male up in the chair in no distress RESPIRATORY SYSTEM: Unlabored breathing , decreased breath sounds at bases HEART: S1 S2 regular rate and rhythm , ABDOMEN: Soft , no tenderness EXTREMITIES: No edema feet - Labs CBC & Chem 7: 01/11/23 03:27 01/12/23 06:12 Labs: Abnormal Lab Results - Last 24 Hours (Table) 01/11/23 01/11/23 01/12/23 Range/Units 16:39 20:13 06:12 Sodium 135 L (137-145) mmol/L BUN 23 H (9-20) mg/dL Creatinine 1.42 H (0.66-1.25) mg/dL Glucose 142 H (74-99) mg/dL POC Glucose (mg/dL) 206 H 211 H (70-110) mg/dL Calcium 8.1 L (8.4-10.2) mg/dL 01/12/23 01/12/23 Range/Units 06:45 11:38 Sodium (137-145) mmol/L BUN (9-20) mg/dL Creatinine (0.66-1.25) mg/dL Glucose (74-99) mg/dL POC Glucose (mg/dL) 135 H 210 H (70-110) mg/dL Calcium (8.4-10.2) mg/dL Assessment and Plan (1) Acute osteomyelitis of left foot Current Visit: Yes Status: Acute Code(s): M86.172 - OTHER ACUTE OSTEOMYELITIS, LEFT ANKLE AND FOOT SNOMED Code(s): [id number] Plan: 1patient with left fourth toe diabetic foot infection with underlying osteomyelitis in this patient who did have a outside surgery bone biopsy and culture which grew Peptostreptococcus and MSSA and the patient has been on IV cefazolin in the outpatient setting 2Outpatient culture positive for Peptostreptococcus and MSSA 3-local wound care with a dry Aquacel dressing change daily 4patient slowly clinically improving and will continue with Unasyn 3 g every 6 hours and monitor clinical course closely Time with Patient: Less than 30
[2023-01-12 20:16] LABS: Glucose,Whole Blood 270 mg/dL (70-110)
[2023-01-12] MEDS: HYDROCORTISONE SUPPOSITORY 25 MG SUPP RECTAL SCH (20:56)
[2023-01-13] MEDS: AMPICILLIN-SULBACTAM 3 GM in SODIUM CHLORIDE 0.9% 100 ML IVPB SCH ×2 (05:56→11:24)
[2023-01-13 06:22] LABS: Glucose,Whole Blood 132 mg/dL (70-110)
[2023-01-13] MEDS: PANTOPRAZOLE 40 MG TABLET PO SCH (06:37)
[2023-01-13] MEDS: carvediloL 12.5 MG TAB PO SCH (06:37)
[2023-01-13] MEDS: INSULIN ASPART (NovoLOG) 100 UNIT/ML VIAL SQ SCH ×2 (06:37→12:31)
[2023-01-13] MEDS ORDERED: amLODIPine 5 MG TAB PO SCH (09:00)
[2023-01-13] MEDS: HYDROCORTISONE SUPPOSITORY 25 MG SUPP RECTAL SCH (09:12)
[2023-01-13] MEDS: hydrALAZINE HCL 50 MG TAB PO SCH (09:17)
[2023-01-13] MEDS: APIXABAN 5 MG TAB PO SCH (09:17)
[2023-01-13] MEDS: CLOPIDOGREL 75 MG TAB PO SCH (09:18)
[2023-01-13] MEDS: LACTOBACILLUS ACIDOPH & BULGAR 1 EACH PACKET PO SCH (09:18)
[2023-01-13] MEDS: ASPIRIN 81 MG PO SCH (09:18)
[2023-01-13] MEDS: hydroCHLOROthiazide 25 MG TAB PO SCH (09:18)
[2023-01-13] MEDS: ATORVASTATIN 40 MG TAB PO SCH (09:18)
[2023-01-13] MEDS: lisinopriL 20 MG TAB PO SCH (09:18)
[2023-01-13 10:09] LABS: Potassium 4.1 mmol/L (3.5-5.1)
[2023-01-13 11:34] LABS: Glucose,Whole Blood 186 mg/dL (70-110)
--- NOTE | 2023-01-13 12:44 | P.PN ---
Subjective Progress Note Date: 01/13/23 HISTORY OF PRESENT ILLNESS: The patient is a 67-year-old male with a known history of hypertension, atrial fibrillation, diabetes mellitus, followed by Dr. Pacheco who presented to [facility] with chest discomfort and was noted to be hypertensive. His troponin was mildly elevated and he was transferred for further evaluation. The patient has a known history of chronic A. fib fibrillation, anticoagulated with Coumadin but no history of ischemic heart disease. He has a history of CHF according to him. He presented to the emergency room with the chest discomfort, radiating to the left shoulder but had some respirophasic pattern. A CT angiogram showed no evidence of pulmonary embolism but he had evidence of calcifications of the coronary arteries. He continues to have mild discomfort. He denies any dyspnea, dizziness or palpitations. The discomfort occurred at rest. He has no history of PND or orthopnea. He has a history of diabetic with ulcer. He has a remote history of smoking that he stopped over 20 years ago. No recent cardiac workup is available to me. He is complaining of headache from the IV nitroglycerin January 11: The patient underwent cardiac catheterization yesterday and was found to have significant disease in the PDA and underwent stenting of that vessel. He has mild respirophasic chest discomfort today. His breathing is stable. His blood pressure is stable. He continues to be in atrial fibrillation with no evidence of malignant arrhythmia. His echocardiogram showed an ejection fraction of 50- 55%. He had evidence of severe pulmonary hypertension with moderate tricuspid regurgitation and mild aortic stenosis. He has diabetic foot infection with underlying osteomyelitis that has been treated. January 12: The patient feels well this morning, his blood pressures under better control. He denies any chest discomfort except when taking deep breaths. His breathing is stable. He continues to be in atrial fibrillation with controlled ventricular response. There is no evidence of ventricular ectopic activity. Urinary output has been stable. Hemodynamically he is stable. He has been off IV nitroglycerin since yesterday. 01/13/2023 Patient examined this morning at the bedside. Patient denies chest pain or pressure. He denies shortness of breath. Telemetry reveals atrial fibrillation with controlled ventricular rates. Patient's blood pressure is well controlled. His hydralazine was adjusted yesterday. He has been up in relating to the bathroom without difficulty. PHYSICAL EXAM: VITAL SIGNS: Reviewed. GENERAL: Well-developed in no acute distress. NECK: Supple. No JVD or thyromegaly LUNGS: Respirations even and unlabored. Lungs essentially clear to auscultation bilaterally. HEART: Irregular rate and rhythm. S1 and S2 heard. + systolic murmur. EXTREMITIES: Normal range of motion. No clubbing or cyanosis. Peripheral pulses intact. No lower extremity edema ASSESSMENT: Non-STEMI, status post PCI of the right PDA Hypertension, improved Hyperlipidemia Diabetes Permanent atrial fibrillation with controlled ventricular rate Pulmonary hypertension History of osteomyelitis PLAN: Continue current cardiac medications Continue aspirin, Plavix, and Eliquis. Discontinue aspirin after 1 week and just continue on Plavix and Eliquis Continue additional cardiac medications Patient stable for discharge home this afternoon Nurse practitioner note has been reviewed by physician. Signing provider agrees with the documented findings, assessment, and plan of care. Objective - Vital Signs Vital signs: Vital Signs Temp 98.4 F 01/13/23 11:28 Pulse 80 01/13/23 11:28 Resp 18 01/13/23 11:28 BP 132/74 01/13/23 11:28 Pulse Ox 94 L 01/13/23 11:28 FiO2 Intake & Output 01/12/23 01/13/23 01/13/23 18:59 06:59 18:59 Intake Total 680 810 180 Output Total 0 Balance 680 810 180 Weight 130.6 kg Intake: IV 100 Ampicillin-Sulbactam 3 gm 100 In Sodium Chloride 0.9% 100 ml @ 200 mls/hr IVPB Q6HR [facility] Rx#:[id number] Oral 580 810 180 Output: Urine 0 Other: Voiding Method Urinal Urinal Urinal # Voids 1 2 - Labs CBC & Chem 7: 01/11/23 03:27 01/13/23 09:19 Labs: Abnormal Lab Results - Last 24 Hours (Table) 01/12/23 01/12/23 01/13/23 Range/Units 16:19 20:15 06:21 Sodium (137-145) mmol/L BUN (9-20) mg/dL Creatinine (0.66-1.25) mg/dL Glucose (74-99) mg/dL POC Glucose (mg/dL) 169 H 270 H 132 H (70-110) mg/dL Calcium (8.4-10.2) mg/dL 01/13/23 01/13/23 Range/Units 09:19 11:33 Sodium 136 L (137-145) mmol/L BUN 26 H (9-20) mg/dL Creatinine 1.42 H (0.66-1.25) mg/dL Glucose 165 H (74-99) mg/dL POC Glucose (mg/dL) 186 H (70-110) mg/dL Calcium 8.0 L (8.4-10.2) mg/dL
--- NOTE | 2023-01-13 15:20 | P.PN ---
Subjective Progress Note Date: 01/13/23 Principal diagnosis: Left fourth toe acute osteomyelitis MSSA/diabetic foot infection Patient is a 67-year-old male with a recent diagnosis of left fourth toe ostial myelitis with outpatient culture positive for Peptostreptococcus and MSSA presented to the hospital with acute HI in this patient who is status post PTCA and stenting of the right PDA, On today's evaluation and that is 01/13/2023, the patient continues to be afebrile, patient is breathing comfortably on room air and denies chest pain , the patient denies nausea no vomiting no abdominal pain or diarrhea and the pain to the left fourth toe in Objective - Vital Signs Vital signs: Vital Signs Temp 98.4 F 01/13/23 11:28 Pulse 80 01/13/23 11:28 Resp 18 01/13/23 11:28 BP 132/74 01/13/23 11:28 Pulse Ox 94 L 01/13/23 11:28 FiO2 Intake & Output 01/12/23 01/13/23 01/13/23 18:59 06:59 18:59 Intake Total 680 810 180 Output Total 0 Balance 680 810 180 Weight 130.6 kg Intake: IV 100 Ampicillin-Sulbactam 3 gm 100 In Sodium Chloride 0.9% 100 ml @ 200 mls/hr IVPB Q6HR [facility] Rx#:[id number] Oral 580 810 180 Output: Urine 0 Other: Voiding Method Urinal Urinal Urinal # Voids 1 2 - Exam GENERAL DESCRIPTION: An elderly male up in the chair in no distress RESPIRATORY SYSTEM: Unlabored breathing , decreased breath sounds at bases HEART: S1 S2 regular rate and rhythm , ABDOMEN: Soft , no tenderness EXTREMITIES: No edema feet - Labs CBC & Chem 7: 01/11/23 03:27 01/13/23 09:19 Labs: Abnormal Lab Results - Last 24 Hours (Table) 01/12/23 01/12/23 01/13/23 Range/Units 16:19 20:15 06:21 Sodium (137-145) mmol/L BUN (9-20) mg/dL Creatinine (0.66-1.25) mg/dL Glucose (74-99) mg/dL POC Glucose (mg/dL) 169 H 270 H 132 H (70-110) mg/dL Calcium (8.4-10.2) mg/dL 01/13/23 01/13/23 Range/Units 09:19 11:33 Sodium 136 L (137-145) mmol/L BUN 26 H (9-20) mg/dL Creatinine 1.42 H (0.66-1.25) mg/dL Glucose 165 H (74-99) mg/dL POC Glucose (mg/dL) 186 H (70-110) mg/dL Calcium 8.0 L (8.4-10.2) mg/dL Assessment and Plan (1) Acute osteomyelitis of left foot Current Visit: Yes Status: Acute Code(s): M86.172 - OTHER ACUTE OS TEOMYELITIS, LEFT ANKLE AND FOOT SNOMED Code(s): [id number] Plan: 1patient with left fourth toe diabetic foot infection with underlying osteomyelitis in this patient who did have a outside surgery bone biopsy and culture which grew Peptostreptococcus and MSSA and the patient has been on IV cefazolin in the outpatient setting 2Outpatient culture positive for Peptostreptococcus and MSSA 3-local wound care with a dry Aquacel dressing change daily 4patient seem to have shown clinical improvement and will continue with Unasyn 3 g every 6 hours and monitor clinical course closely, patient did have multiple questions concerns were answered Time with Patient: Less than 30
[2023-01-13 16:24] VITALS: BP 148/89; PULSE 63; RESP 17; TEMP 97.8
--- NOTE | 2023-01-13 16:27 | P.DS ---
Providers Date of admission: 01/09/23 22:07 Expected date of discharge: 01/13/23 Attending physician: Sudhir Wooten Consults: 01/09/23 22:05 Consult Physician Routine Consulting Provider: Darell Lara Consult Reason/Comments: NSTEMI, HTN emergency Do you want consulting provider notified?: Yes, Notify in am Consult Physician Stat Consulting Provider: Anthony Pittman Consult Reason/Comments: NSTEMI, HTN emergency on Nitro gtt Do you want consulting provider notified?: Already Contacted 01/10/23 01:24 Consult Physician Urgent Consulting Provider: Carlos Huang Consult Reason/Comments: osteomyelitis left foot Do you want consulting provider notified?: Yes 01/10/23 11:26 Consult Physician Routine Consulting Provider: Darell Lara Consult Reason/Comments: Post Interventional Patient Do you want consulting provider notified?: Already Contacted Primary care physician: [facility] Course: Chief Complaint: Chest pain This is a pleasant 67-year-old patient who follows with Dr. Cano. Chronic stable medical conditions include atrial fibrillation, CHF, diabetes, hypertension, secondary and third toe on the right foot amputated. 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 Patient yesterday started out with left chest pain and shoulder pain. Some shortness of breath. No perspiration. No cough. Pain lasts for good at an after 40: The hospital. This morning patient underwent a cardiac cath with stenting. Postprocedure resting in bed in the ICU. Patient does ambulate with crutches. Pain control. January 11: ICU: Up in a chair. Had some chest pain earlier. IV heparin. Was an IV nitroglycerin drip. Discontinued by cardiology. Eating fair. IV Unasyn. Breathing stable. January 12: ICU. Up in a chair. Occasional pain in the left shoulder area. Eating well. Had a BM yesterday. Possible planning for discharge tomorrow per cardiology. January 13: Medical floor. No chest pain. Tolerating diet. Cleared by cardiology for discharge. IV cefazolin outpatient to continue.per ID Past medical history to include: Atrial fibrillation, CHF, diabetes, hypertension, left fourth toe osteomyelitis Social history former smoker. Retired. . Physical examination: VITAL SIGNS: 97.8, 63, 17, 148/89, 96% room air GENERAL: BMI 39.4, up in a recliner EYES: Pupils equal. Conjunctiva normal. HEENT: External appearance of nose and ears normal, oral cavity grossly normal. NECK: JVD not raised; masses not palpable. HEART: First and second heart sounds are normal; no edema. LUNGS:[ Respiratory rate normal; decreased breath sounds. ABDOMEN: Soft, nontender, liver spleen not palpable, no masses palpable. PSYCH: Alert and oriented x3; mood and affect normal. MUSCULOSKELETAL:No Clubbing/cyanosis;muscles-grossly intact Extremities: Right foot second and third toe amputated. Left foot fourth toe infection NEUROLOGICAL: Cranial nerves grossly intact; no facial asymmetry, power and sensation grossly intact. INVESTIGATIONS, reviewed in the clinical context: January 13: Potassium 4.1 creatinine 1.4 to 2-D echocardiogram: EF 50-55% severe pulmonary hypertension January 10: White count 8.4 hemoglobin 12 platelets 359 potassium 4.7 creatinine 1.23 LDL 91 Troponin I 0.344 EKG tracing personally reviewed by me-atrial fibrillation. Rate 84 Chest x-ray film personally reviewed by me-: Bilateral interstitial opacities more so the basis. Cardiac catheterization: Stenting of the right PDA with the reduction from 70% and less than 5% Assessment and plan: -Non-ST elevation myocardial infarction -Angioplasty and stent, right PDA, by Dr. Maria A Pacheco Aspirin, eliquis, Lipitor, Toprol-XL -GERD Protonix -Essential hypertension Toprol-XL, Zestril, hydrochlorothiazide and amlodipine -Hyperlipidemia Lipitor -Severe pulmonary hypertension, secondary -Paroxysmal atrial fibrillation. Toprol-XL 100 mg daily. Eliquis -Left foot fourth toe cellulitis with acute osteomyelitis growing Peptostreptococcus and MSSA from outside facility. IV Unasyn. Local wound care. Try Aquacel dressing change daily line Outpatient IV cefazolin to continue per ID -Full code Disposition: Home Patient Condition at Discharge: Stable Plan - Discharge Summary Discharge Rx Participant: Yes New Discharge Prescriptions: New Hydrocortisone Suppository [Anusol-Hc] 25 mg RECTAL BID #60 suppositor Nitroglycerin Sl Tabs [Nitrostat] 0.4 mg SUBLINGUAL Q5M PRN #30 tab PRN Reason: Chest Pain amLODIPine [Norvasc] 5 mg PO DAILY #30 tab Pantoprazole [Protonix] 40 mg PO AC-BRKFST #30 tab Apixaban [Eliquis] 5 mg PO BID 60 Days #60 tab hydrALAZINE HCL [Apresoline] 50 mg PO BID #60 tab carvediloL [Coreg*] 25 mg PO BID-W/MEALS #60 tab Atorvastatin [Lipitor] 40 mg PO DAILY #30 tab Lisinopril-Hctz 20-12.5 mg [Zestoretic 20-12.5] 1 tab PO BID #60 tab Clopidogrel [Plavix] 75 mg PO DAILY #90 tablet Continue L.acidoph,Paracasei, B.lactis [Probiotic] 1 cap PO DAILY sitaGLIPtin [Januvia] 100 mg PO DIRECTED Aspirin EC [Ecotrin Low Dose] 81 mg PO DAILY metFORMIN HCL 1,000 mg PO BID Dulaglutide [Trulicity] 1.5 mg SQ SA Discontinued Metoprolol Succinate (ER) [Toprol Xl] 100 mg PO DAILY Warfarin [Coumadin] 5 mg PO DAILY Furosemide [Lasix] 40 mg PO DAILY Enalapril [Vasotec] 20 mg PO BID Discharge Medication List Aspirin EC [Ecotrin Low Dose] 81 mg PO DAILY 01/09/23 [History] L.acidoph,Paracasei, B.lactis [Probiotic] 1 cap PO DAILY 01/09/23 [History] metFORMIN HCL 1,000 mg PO BID 01/09/23 [History] Dulaglutide [Trulicity] 1.5 mg SQ SA 01/10/23 [History] sitaGLIPtin [Januvia] 100 mg PO DIRECTED 01/10/23 [History] Apixaban [Eliquis] 5 mg PO BID 60 Days #60 tab 01/13/23 [Rx] Atorvastatin [Lipitor] 40 mg PO DAILY #30 tab 01/13/23 [Rx] Clopidogrel [Plavix] 75 mg PO DAILY #90 tablet 01/13/23 [Rx] Hydrocortisone Suppository [Anusol-Hc] 25 mg RECTAL BID #60 suppositor 01/13/23 [Rx] Lisinopril-Hctz 20-12.5 mg [Zestoretic 20-12.5] 1 tab PO BID #60 tab 01/13/23 [Rx] Nitroglycerin Sl Tabs [Nitrostat] 0.4 mg SUBLINGUAL Q5M PRN #30 tab 01/13/23 [Rx] Pantoprazole [Protonix] 40 mg PO AC-BRKFST #30 tab 01/13/23 [Rx] amLODIPine [Norvasc] 5 mg PO DAILY #30 tab 01/13/23 [Rx] carvediloL [Coreg*] 25 mg PO BID-W/MEALS #60 tab 01/13/23 [Rx] hydrALAZINE HCL [Apresoline] 50 mg PO BID #60 tab 01/13/23 [Rx] Follow up Appointment(s)/Referral(s): Yvon Cano MD [Primary Care Provider] - 1-2 days (Tuesday 3, 1:00) Carlos Huang MD [STAFF PHYSICIAN] - 1 Week Jordan Pacheco MD [STAFF PHYSICIAN] - 1 Week (January 24 12:45 in the [facility]) Patient Instructions/Handouts: *Surgery [facility] - After Heart Catheterization - Intelligence Intern Instructions, Heart Attack (DC) Activity/Diet/Wound Care/Special Instructions: Continue aspirin, Plavix, and Eliquis. Discontinue aspirin after 1 week and just continue on Plavix and Eliquis IV antibiotics per ID Discharge Disposition: HOME WITH HOME HEALTH SERVICES
[2023-01-15] MEDS ORDERED: Dulaglutide [Trulicity] 1.5 MG/0.5 ML Each SQ SCH (09:00)
== END 2023-01-13 16:19 | disposition home health service (06) | DRG 247 ==
LOC: EC 21:26 → 2SICU 22:07 → 3SCARD 01-12 15:04
PROVIDERS: ADMIT Hospitalist; ATTEND Hospitalist
PROC: 4A023N7 Measurement of Cardiac Sampling and Pressure, Left Heart, Percutaneous Approach (ICD-10-PCS; 2023-01-10)
PROC: B2111ZZ Fluoroscopy of Multiple Coronary Arteries using Low Osmolar Contrast (ICD-10-PCS; 2023-01-10)
PROC: 027034Z Dilation of Coronary Artery, One Artery with Drug-eluting Intraluminal Device, Percutaneous Approach (ICD-10-PCS; principal; 2023-01-10 08:30)
PROC: 4A033BC Measurement of Arterial Pressure, Coronary, Percutaneous Approach (ICD-10-PCS; 2023-01-10 08:30)
DX: I21.4 Non-ST elevation (NSTEMI) myocardial infarction (principal); M86.172 Other acute osteomyelitis, left ankle and foot; M86.672 Other chronic osteomyelitis, left ankle and foot; I16.1 Hypertensive emergency; I48.21 Permanent atrial fibrillation; Z68.41 Body mass index [BMI] 40.0-44.9, adult; I27.20 Pulmonary hypertension, unspecified; L97.529 Non-pressure chronic ulcer of other part of left foot with unspecified severity; I11.0 Hypertensive heart disease with heart failure; E11.69 Type 2 diabetes mellitus with other specified complication; E11.628 Type 2 diabetes mellitus with other skin complications; E11.621 Type 2 diabetes mellitus with foot ulcer; I50.9 Heart failure, unspecified; I95.9 Hypotension, unspecified; E66.01 Morbid (severe) obesity due to excess calories; E78.5 Hyperlipidemia, unspecified; I25.10 Atherosclerotic heart disease of native coronary artery without angina pectoris; B95.61 Methicillin susceptible Staphylococcus aureus infection as the cause of diseases classified elsewhere; B96.89 Other specified bacterial agents as the cause of diseases classified elsewhere; K21.9 Gastro-esophageal reflux disease without esophagitis; Z87.891 Personal history of nicotine dependence; Z28.311 Partially vaccinated for COVID-19; Z79.84 Long term (current) use of oral hypoglycemic drugs; Z79.85 Long-term (current) use of injectable non-insulin antidiabetic drugs; Z79.01 Long term (current) use of anticoagulants; Z79.82 Long term (current) use of aspirin; Z89.421 Acquired absence of other right toe(s); Z91.018 Allergy to other foods; Z91.048 Other nonmedicinal substance allergy status; Z79.899 Other long term (current) drug therapy; Z82.49 Family history of ischemic heart disease and other diseases of the circulatory system
CPT/HCPCS: 71045; 80048; 80053; 80061; 83036; 83690; 83735; 84484; 85025; 85610; 85730; 93005; 93306; 93458; 94760; 96374; 99291